=== PATIENT | female | born 1970 | race Caucasian/White ===

== ENCOUNTER 2016-07-06 07:54 | Outpatient (CLI) | payer OTHER | END 2016-07-06 07:55 | disposition home or self-care (01) | DX: M23.222 Derangement of posterior horn of medial meniscus due to old tear or injury, left knee (principal); M17.12 Unilateral primary osteoarthritis, left knee; M67.864 Other specified disorders of tendon, left knee; M23.92 Unspecified internal derangement of left knee ==

== ENCOUNTER 2016-07-21 06:16 | Day surgery (SDC) | payer OTHER ==
[2016-07-21] MEDS ORDERED: ACETAMINOPHEN 1,000 MG/100 ML 100 ML IV ONE (06:31)
[2016-07-21] MEDS ORDERED: LACTATED RINGERS 1,000 ML IV ONE ×2 (06:36→08:59)
[2016-07-21] MEDS ORDERED: CLINDAMYCIN IV 900 MG/50 ML IV SCH (07:00)
[2016-07-21] MEDS ORDERED: SCOPOLAMINE PATCH TOP ONE (07:33)
[2016-07-21] MEDS ORDERED: fentaNYL 100 MCG/2 ML VIAL IVP ONE (08:00)
[2016-07-21] MEDS ORDERED: PROPOFOL 200 MG/20 ML VIAL IVP ONE (08:00)
[2016-07-21] MEDS ORDERED: LIDOCAINE-PF 2% 10 ML AMP SUBQ ONE (08:00)
[2016-07-21] MEDS ORDERED: MIDAZOLAM 2 MG/2 ML VIAL IVP ONE (08:00)
[2016-07-21] MEDS ORDERED: LACTATED RINGERS 1,000 ML IV SCH (08:00)
[2016-07-21] MEDS ORDERED: DEXAMETHASONE 4 MG/ML VIAL IVP ONE (08:00)
[2016-07-21] MEDS ORDERED: PHENYLEPHRINE 50 MG/5 ML VIAL IV ONE (08:00)
[2016-07-21] MEDS ORDERED: METOCLOPRAMIDE 10 MG/2 ML VIAL IVP ONE (08:00)
[2016-07-21] MEDS ORDERED: ROPIVACAINE 0.2% PF 20 ML AMPULE SUBQ ONE ×2 (08:14→09:00)
[2016-07-21] MEDS ORDERED: MORPHINE PF 5 MG/10 ML AMP SUBQ ONE ×2 (08:14→09:00)
[2016-07-21] MEDS ORDERED: BUPIVACAINE 0.5% PF 10 ML VIAL IM ONE (08:16)
[2016-07-21] MEDS: HYDROmorphone 1 MG/ML SYRINGE ONE ×4 (09:41→09:57)
== END 2016-07-21 06:17 | disposition home or self-care (01) ==
PROC: 0SCD4ZZ Extirpation of Matter from Left Knee Joint, Percutaneous Endoscopic Approach (ICD-10-PCS; 2016-07-21)
PROC: 0SQD4ZZ Repair Left Knee Joint, Percutaneous Endoscopic Approach (ICD-10-PCS; 2016-07-21)
PROC: 0SBD4ZZ Excision of Left Knee Joint, Percutaneous Endoscopic Approach (ICD-10-PCS; principal; 2016-07-21 07:30)
DX: S83.242A Other tear of medial meniscus, current injury, left knee, initial encounter (principal); M94.262 Chondromalacia, left knee; M23.42 Loose body in knee, left knee; M17.12 Unilateral primary osteoarthritis, left knee; E66.9 Obesity, unspecified; Z68.39 Body mass index [BMI] 39.0-39.9, adult
CPT/HCPCS: 29879; 29881; J0131; J1170; J3490; J7120

== ENCOUNTER 2021-04-25 15:30 | Emergency (ER) | payer OTHER ==
--- NOTE | 2021-04-25 16:35 | ED Physician Documentation ---
PD HPI URI - Stated complaint Stated Complaint: C+ - Chief complaint Chief Complaint: Fever - History obtained from History obtained from: Patient - History of Present Illness Timing - onset: How many days ago (6) Timing duration: Days (6) Timing details: Abrupt onset, Still present Associated symptoms: Fever, Nasal congestion, Sore throat, Productive cough, Dyspnea. No: NVD, Bilateral edema Contributing factors: Sick contact ( with positive COVID TEst and feeling ill. Patient then ill and had home rapid Ag test that was positive on . Was hoping to do okay, but has increasing cough and fevers. Hoping for improved meds and also to consider MAB therapy.), Unimmunized Improves by: No: Rest, Medication (OTC guafenesin and cold meds. Tylenol does help fever. Has increased cough with sputum production.) Worsened by: Activity Similar symptoms before: Has not had sx before Recently seen: Not recently seen Review of Systems Constitutional: reports: Fever, Chills Nose: reports: Rhinorrhea / runny nose, Congestion Throat: reports: Sore throat Cardiac: reports: Chest pain / pressure (with coughing, moderate or worse pains in anterior chest and muscles.). denies: Palpitations, Pedal edema Respiratory: reports: Dyspnea, Cough (with now 1-2 days increasing sputum production.) GI: reports: Nausea. denies: Abdominal Pain, Vomiting, Diarrhea : denies: Dysuria, Frequency Skin: denies: Rash, Lesions Neurologic: reports: Generalized weakness, Headache. 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, Miscarriage(s) : None HEENT: None Psych: None Musculoskeletal: Other Derm: None - Past Surgical History Past Surgical History: Yes General: Cholecystectomy Ortho: Arthroscopic surgery, Carpal Tunnel surgery, Other /HOSPICE DIRECTOR: section, Hysterectomy HEENT: Tonsil/Adenoidectomy - Present Medications Home Medications: Ambulatory Orders Medication Instructions Recorded Confirmed Trazodone HCl 50 mg PO HS PRN 12/31/12 04/25/21 Omeprazole [PriLOSEC] 20 mg PO DAILY 01/12/14 04/25/21 Cetirizine [ZyrTEC] 10 mg PO DAILY 07/18/16 04/25/21 Albuterol Sulf [Ventolin Hfa 2 - 3 puffs INH QID 10 Days #1 04/25/21 Inhaler] inhaler Benzonatate [Tessalon] 100 mg PO TID PRN #20 cap 04/25/21 HYDROcod/ACETAM 5/325 [[place] 5/325] 1 ea PO Q6H PRN #18 tablet 04/25/21 Promethazine [Phenergan] 25 mg PO Q6H PRN #20 tab 04/25/21 cephALEXin [Keflex] 500 mg PO TID 5 Days #15 cap 04/25/21 dexAMETHasone [Decadron] 4 mg PO DAILY #5 tablet 04/25/21 - Allergies Allergies/Adverse Reactions: Allergies Allergy/AdvReac Type Severity Reaction Status Date / Time ondansetron HCl * Allergy Hives Verified 04/25/21 16:08 [From Zofran] Penicillins Allergy Hives Verified 04/25/21 16:08 wheat AdvReac Cramps Verified 04/25/21 16:08 - Social History Does the pt smoke?: No Smoking Status: Never smoker Does the pt drink ETOH?: No Does the pt have substance abuse?: No - Immunizations Immunizations are current?: Yes - POLST Patient has POLST: No PD ED PE NORMAL - Vitals Vital signs reviewed: Yes (sats okay) - General General: Alert and oriented X 3, No acute distress, Well developed/nourished - HEENT HEENT: Moist mucous membranes, Pharynx benign - Neck Neck: Supple, no meningeal sign, No adenopathy - Cardiac Cardiac: RRR, No murmur - Respiratory Respiratory: No respiratory distress (but does appear in pain with coughing, and having cough with attempted deep or moderate breaths triggering coughing. ). No: Clear bilaterally (some exp wheezing. Mild coarse sounds particularly right side. ) - Abdomen Abdomen: Soft, Non tender - Back Back: No CVA TTP - Derm Derm: Normal color, Warm and dry - Neuro Neuro: Alert and oriented X 3, No motor deficit, Normal speech Results - Vitals Vitals: Oxygen O2 Source Room air - Rads (name of study) chest xray Radiology: Prelim report reviewed (BIlateral patchy ariway opacities. ), EMP read contemporaneously (presume COVID as xray very c/w that, but symptoms suggest possible secondary infection as well.), See rad report PD MEDICAL DECISION MAKING - ED course Complexity details: reviewed results, re-evaluated patient (she did brreath easier with MDIs and meds. She is considering MAB if test psotive. ), considered differential (presumed COVID< But with some symptoms suggestive secondary ifnection versus ramping primary infection. ), d/w patient Departure - Departure Disposition: 01 Home, Self Care Clinical Impression: COVID-19, Acute lower respiratory infection Condition: Stable Record reviewed to determine appropriate education?: Yes Instructions: ED Pneumonia Adult Prescriptions: dexAMETHasone [Decadron] 4 mg PO DAILY #5 tablet cephALEXin [Keflex] 500 mg PO TID 5 Days #15 cap HYDROcod/ACETAM 5/325 [[place] 5/325] 1 ea PO Q6H PRN #18 tablet PRN Reason: Cough Promethazine [Phenergan] 25 mg PO Q6H PRN #20 tab PRN Reason: Nausea / Vomiting Benzonatate [Tessalon] 100 mg PO TID PRN #20 cap PRN Reason: Cough Albuterol Sulf [Ventolin Hfa Inhaler] 2 - 3 puffs INH QID 10 Days #1 inhaler Comments: Stay well-hydrated. Tylenol if needed for fevers and pains. Use the albuterol inhaler 2 to 3 puffs 4 times a day at least regularly for the next several days to a week to help with breathing and decrease coughing. Decadron steroid daily for the next 5 days to help with airway inflammation and improve breathing and decrease coughing. Add benzonatate if needed for cough. Promethazine if needed for nausea. Keflex three times daily for 5 days for possible bacterial co-infection, given your worsening symptoms. You can add hydrocodone every 4-6 hours if needed for general pains and pain in the chest related to coughing and can also help with cough suppression. Your chest x-ray looks consistent with a viral type pneumonia. Your Covid test will result the next day or 2. If it verifies the Covid infection, you could return to the ER during that daytime hours between 7 AM and 5 PM for monoclonal antibody infusion to help try to reduce the severity of the illness. Refer to the handout that I gave you for information on this. Call ahead to the ER if you desire to get this to ensure we have a supply in stock and can accommodate the process. It would be a approximately 3-hour process with the IV and infusion. Return if worsening symptoms overall. I transmitted your prescriptions to [facility] pharmacy in [place]. As we discussed I do not believe they are filling prescriptions today because their pharmacist did not make it in but presumably they will be open tomorrow. I am prescribing a short course of narcotic pain medication for you. These are potentially dangerous and addictive medications that should be used carefully. These medications may constipate you. Take an gwst-sza-wklktzu stool softener such as docusate twice daily with plenty of water while taking these medicati ons. If you go 24 hours without a bowel movement, take wedn-afy-mdrhmnh MiraLAX, per package instructions. Do not drink or drive while taking these medications. If you received narcotic or sedating medications while in the emergency department do not drive for 24 hours. Store this medication in a safe, secure place and out of reach of children. It is a violation of federal law to give or sell this medication to another person or to use in a manner other than prescribed. The ED will not refill narcotic prescriptions, including prescriptions lost or stolen. You can dispose of unwanted medications at the [facility]'s office or at several pharmacies such as [facility]. Discharge Date/Time: 04/25/21 18:34
[2021-04-25] MEDS ORDERED: diphenhydrAMINE ELIXIR 25 MG/10 ML UDC PO STA (17:16)
[2021-04-25] MEDS ORDERED: DEXAMETHASONE 10 MG/ML VIAL PO STA (17:16)
[2021-04-25] MEDS ORDERED: ALBUTEROL 1 PUFF INH STA (17:16)
[2021-04-25] MEDS ORDERED: BENZONATATE 100 MG CAPSULE PO STA (17:16)
[2021-04-25] MEDS ORDERED: CHERRY SYRUP 10 ML UDC PO ONE (17:16)
[2021-04-25] MEDS ORDERED: PROMETHAZINE 25 MG TABLET PO STA (17:17)
[2021-04-25] MEDS ORDERED: HYDROcod/ACETAM 5/325 MG TABLET PO STA (17:18)
--- NOTE | 2021-04-25 17:36 | XRAY Report ---
PROCEDURE: Chest 1 View X-Ray INDICATIONS: cough and fever TECHNIQUE: One view of the chest was acquired. COMPARISON: None. FINDINGS: Surgical changes and devices: None. Lungs and pleura: No pleural effusions or pneumothorax. Bilateral patchy airspace opacity. Mediastinum: Mediastinal contours appear normal. Heart size is normal. Bones and chest wall: No suspicious bony lesions. Overlying soft tissues appear unremarkable. IMPRESSION: Bilateral patchy airspace opacity. Findings concerning for multifocal pneumonia. Covid 19 pneumonia could have this appearance. Reviewed by: Juan J Adler MD on 04/25/2021 5:34 PM PST Approved by: Juan J Adler MD on 04/25/2021 5:34 PM PST Station ID: [id number]
[2021-04-25 18:22] VITALS: BP 116/62
== END 2021-04-25 18:34 | disposition home or self-care (01) ==
LOC: ED 15:30
DX: U07.1 COVID-19 (principal); J22 Unspecified acute lower respiratory infection; R11.0 Nausea
CPT/HCPCS: 71045; 87635; 94640; 94664; 99284; A9270; Q0169

== ENCOUNTER 2021-04-30 18:40 | Inpatient (IN) | payer OTHER ==
[2021-04-30] MEDS ORDERED: DEXAMETHASONE 10 MG/ML VIAL IVP STA (20:03)
[2021-04-30] MEDS ORDERED: ENOXAPARIN 100 MG/ML SYRINGE SUBQ STA (20:03)
[2021-04-30] MEDS ORDERED: KETOROLAC 15 MG/ML VIAL IVP STA (20:04)
--- NOTE | 2021-04-30 20:06 | ED Physician Documentation ---
PD HPI DYSPNEA - Stated complaint Stated Complaint: C+ - Chief complaint Chief Complaint: Resp - History obtained from History obtained from: Patient - Additional information Additional information: 51-year-old woman with no significant comorbidities became ill on April 18. Her had just tested positive for Covid. She was not vaccinated against Covid. She was seen here on April 25. Chest x-ray showing opacities consistent with Covid pneumonia and subsequently tested positive. She returns today more short of breath, body aches, headaches, diarrhea. She is noted to be hypoxic on room air in triage with a room air sat of 78% and on my evaluation is requiring approximately 4 L of oxygen to keep her sats in the mid to low 90s. 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, Miscarriage(s) : None HEENT: None Psych: None Musculoskeletal: Other Derm: None - Past Surgical History Past Surgical History: Yes General: Cholecystectomy Ortho: Arthroscopic surgery, Carpal Tunnel surgery, Other /LINUX CONSULTANT: section, Hysterectomy HEENT: Tonsil/Adenoidectomy - Present Medications Home Medications: Ambulatory Orders Medication Instructions Recorded Confirmed Trazodone HCl 50 mg PO HS PRN 12/31/12 04/25/21 Omeprazole [PriLOSEC] 20 mg PO DAILY 01/12/14 04/25/21 Cetirizine [ZyrTEC] 10 mg PO DAILY 07/18/16 04/25/21 Albuterol Sulf [Ventolin Hfa 2 - 3 puffs INH QID 10 Days #1 04/25/21 Inhaler] inhaler Benzonatate [Tessalon] 100 mg PO TID PRN #20 cap 04/25/21 HYDROcod/ACETAM 5/325 [[place] 5/325] 1 ea PO Q6H PRN #18 tablet 04/25/21 Promethazine [Phenergan] 25 mg PO Q6H PRN #20 tab 04/25/21 cephALEXin [Keflex] 500 mg PO TID 5 Days #15 cap 04/25/21 dexAMETHasone [Decadron] 4 mg PO DAILY #5 tablet 04/25/21 - Allergies Allergies/Adverse Reactions: Allergies Allergy/AdvReac Type Severity Reaction Status Date / Time ondansetron HCl * Allergy Hives Verified 04/25/21 16:08 [From Zofran] Penicillins Allergy Hives Verified 04/25/21 16:08 wheat AdvReac Cramps Verified 04/25/21 16:08 - Social History Does the pt smoke?: No Smoking Status: Never smoker Does the pt drink ETOH?: No Does the pt have substance abuse?: No - Immunizations Immunizations are current?: Yes - POLST Patient has POLST: No PD ED PE NORMAL - Vitals Vital signs reviewed: Yes - General General: Alert and oriented X 3, No acute distress - HEENT HEENT: PERRL, EOMI - Neck Neck: Supple, no meningeal sign, No bony TTP - Cardiac Cardiac: RRR, No murmur - Respiratory Respiratory: Other (Rhonchorous throughout, mild labored breathing) - Abdomen Abdomen: Non tender - Back Back: No CVA TTP, No spinal TTP - Derm Derm: Normal color, Warm and dry - Extremities Extremities: No edema, No calf tenderness / cord - Neuro Neuro: Alert and oriented X 3, Normal speech Results - Vitals Vitals: Vital Signs - 24 hr 04/30/21 04/30/21 04/30/21 19:08 19:10 20:00 Temperature 37.3 C 37.3 C Heart Rate 60 60 63 Respiratory 24 24 24 Rate Blood Pressure 143/70 H 143/70 H 106/76 O2 Saturation 78 L 92 90 L Oxygen O2 Source Nasal cannula Oxygen Flow Rate 3 - EKG (time done) 1953 Rate: Rate (enter#) (57) Rhythm: NSR [place]: Normal QRS: Low voltage Ischemia: Non specific changes Procedures - General procedure General procedure: She was difficult for IV access and multiple nurses tried and failed. I p ersonally placed a long 22-gauge IV in the right antecubital fossa after ChloraPrep using real-time ultrasound guidance the flushed and deann well. PD MEDICAL DECISION MAKING - ED course ED course: 51-year-old woman with Covid pneumonia presents now significantly hypoxemic. Spoke with Dr. Matt for admission at 8:06 PM. She is requiring 4 L of nasal cannula. D-dimer and other labs are pending. Will order Lovenox and Decadron here. If D-dimer positive CT angiography as well. Departure - Departure Disposition: 66 [facility] DC/Xfer Clinical Impression: COVID-19, Hypoxemia Condition: Serious
[2021-04-30] MEDS ORDERED: PROCHLORPERAZINE 10 MG/2 ML VIAL IVP PRN (20:09)
--- NOTE | 2021-04-30 20:13 | XRAY Report ---
PROCEDURE: Chest 1 View X-Ray INDICATIONS: dyspnea, covid TECHNIQUE: One view of the chest was acquired. COMPARISON: Chest x-ray 04/25/2021 FINDINGS: Surgical changes and devices: None. Lungs and pleura: Multifocal areas of patchy opacity are present markedly progressive compared to boone or exam. Mediastinum: Mediastinal contours appear normal. Heart size is normal. Bones and chest wall: No suspicious bony lesions. Overlying soft tissues appear unremarkable. IMPRESSION: Progressive bilateral pulmonary opacities most consistent with pneumonia. Reviewed by: Cassie Hawkins MD on 04/30/2021 8:12 PM PST Approved by: Cassie Hawkins MD on 04/30/2021 8:12 PM PST Station ID: [id number]
--- NOTE | 2021-04-30 20:13 | HISTORY & PHYSICAL EXAMINATION ---
Chief Complaint - Chief Complaint Chief Complaint: Shortness of breath. History of Present Illness - Admitted From Admitted From:: Home - History Obtained From Records Reviewed: Yes History obtained from: Patient, ER Physician, EMR - History of Present Illness HPI Comment/Other: This is a 51-year-old female with past medical history significant for GERD who presents today complaining of worsening shortness of breath. She states she took an at-home test for Covid on the which came back positive. She felt terrible over the next week and so she came to the emergency department on the . X-ray at that time showed bilateral pneumonia but she was not hypoxic and so she was sent home. She states over the past 3 to 4 days she has had pro gressive shortness of breath and so she came back today for evaluation. She states her dyspnea is only with activity and she feels fine at rest. She has had a cough with productive green/brown sputum. She also had chest pain that is located behind the sternum and is worse with inspiration. The pain is nonradiating. She reports no fevers at home but has felt chills, malaise and has had diarrhea. She has also had decreased appetite. She is not vaccinated against Covid. She reports no lower extremity edema. 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 Her twin brother also has a history of diabetes. Living arrangement: At home Living Situation: With spouse/s.o. Social History Notes: She is a non-smoker and does not drink alcohol. - POLST Patient has POLST: No Meds/Allgy - Home Medications Home Medications: Ambulatory Orders Medication Instructions Recorded Confirmed Trazodone HCl 50 mg PO HS PRN 12/31/12 04/25/21 Omeprazole [PriLOSEC] 20 mg PO DAILY 01/12/14 04/25/21 Cetirizine [ZyrTEC] 10 mg PO DAILY 07/18/16 04/25/21 Albuterol Sulf [Ventolin Hfa 2 - 3 puffs INH QID 10 Days #1 04/25/21 Inhaler] inhaler Benzonatate [Tessalon] 100 mg PO TID PRN #20 cap 04/25/21 HYDROcod/ACETAM 5/325 [[place] 5/325] 1 ea PO Q6H PRN #18 tablet 04/25/21 Promethazine [Phenergan] 25 mg PO Q6H PRN #20 tab 04/25/21 cephALEXin [Keflex] 500 mg PO TID 5 Days #15 cap 04/25/21 dexAMETHasone [Decadron] 4 mg PO DAILY #5 tablet 04/25/21 - Allergies Allergies/Adverse Reactions: Allergies Allergy/AdvReac Type Severity Reaction Status Date / Time ondansetron HCl * Allergy Hives Verified 04/25/21 16:08 [From Zofran] Penicillins Allergy Hives Verified 04/25/21 16:08 wheat AdvReac Cramps Verified 04/25/21 16:08 Review of Systems - Constitutional Constitutional: reports: Fatigue, Chills, Malaise. denies: Fever - Ears, Nose & Throat Ears, Nose & Throat: denies: Nasal discharge - Cardiovascular Cariovascular: reports: Chest pain, Lightheadedness, Exertional dyspnea, Decr. exercise tolerance. denies: Edema - Respiratory Respiratory: reports: Cough, Sputum production, SOB with exertion. denies: SOB at rest - Gastrointestinal Gastrointestinal: reports: Diarrhea, Change in bowel habits. denies: Abdominal pain, Constipation, Nausea, Vomiting - Genitourinary Genitourinary: denies: Dysuria, Frequency, Urgency, Hematuria - Integumentary Integumentary: denies: Rash - Neurological Neurological: reports: Dizziness. denies: General weakness, Focal weakness - Hematologic/Lymphatic Hematologic/Lymphatic: denies: Anemia, Bruising - All Other Systems All Other Systems: reports: Reviewed and negative Prior Level of Functionality: She is independent with her ADL's. Exam - Vital Signs Reviewed Vital Signs: Yes Vital Signs: Vital Signs x48h Temp Pulse Resp BP Pulse Ox 04/30/21 19:10 37.3 C 60 24 143/70 H 92 04/30/21 19:08 37.3 C 60 24 143/70 H 78 L - Physical Exam General Appearance: positive: No acute distress, Alert Eyes Bilateral: positive: Normal inspection, Conjunctivae nml ENT: positive: ENT inspection nml Neck: positive: Nml inspection Respiratory: positive: No respiratory distress, Rhonchi. negative: Wheezes, Rales Cardiovascular: positive: Regular rate & rhythm. negative: Tachycardia, Systolic murmur Abdomen: positive: Non-tender, No distention. negative: Tenderness Skin: positive: Warm, Dry Extremities: positive: No pedal edema Neurologic/Psychiatric: positive: Motor nml. negative: Disoriented to person, Disoriented to place Conclusion/Plan - Problem List (1) Acute respiratory failure with hypoxia Conclusion/Plan: She is hypoxic requiring 4 L of oxygen. Imaging reveals bilateral infiltrates and she is Covid positive. She received Decadron in the emergency department. We will place her on 6 mg IV Decadron daily. We will start her on remdesivir. D-dimer has been ordered and is pending. If it is significantly elevated we will obtain a CT angiogram. She has received Lovenox therapeutic dose empirically. Continue supplemental oxygen for goal saturation greater than 92%. (2) COVID-19 Conclusion/Plan: This is the cause of respiratory failure. She is unvaccinated. Management as mentioned above. - Lab Results Lab results reviewed: Yes Fish Bones: 04/30/21 21:45 04/30/21 21:45 - Diagnostic Imaging Results Diagnostic Imaging Results: positive: Final report reviewed - EKG Results EKG Interpreted Independently: Yes EKG Findings: EKG reveals a sinus rhythm without evidence of ischemia. Core Measures - Anticipated LOS I expect patient to be DC'd or transferred within 96 hours.: Yes - Issues Hospital Issues and Management Plan: 51-year-old female with Covid presents with worsening dyspnea found to be hypoxic. She will be admitted for IV Decadron and remdesivir. - DVT/VTE - Prophylaxis VTE/DVT Device ordered at admit?: Yes - Stroke - Rehab Assessment Rehab services assessment to be ordered?: Yes
[2021-04-30] MEDS ORDERED: INSULIN ASPART 300 UNIT/3 ML PEN SUBQ SCH (21:00)
[2021-04-30 21:52] LABS: BASOPHILS % (AUTO) 0.2 %; HCT - HEMATOCRIT 42.7 % (37.0-47.0); HGB - HEMOGLOBIN 14.3 g/dL (12.0-16.0); LYMPHOCYTES # (AUTO) 0.7 10^3/uL (1.5-3.5); LYMPHOCYTES % (AUTO) 7.6 %; MEAN CORPUSCULAR HEMOGLOBIN 28.3 pg (27.0-31.0); MEAN CORPUSCULAR HGB CONC 33.5 g/dL (32.0-36.0); MEAN CORPUSCULAR VOLUME 84.6 fL (81.0-99.0); MEAN PLATELET VOLUME 9.3 fL (7.9-10.8); MONOCYTES # (AUTO) 0.4 10^3/uL (0.0-1.0); MONOCYTES % (AUTO) 4.3 %; NEUTROPHILS # (AUTO) 8.3 10^3/uL (1.5-6.6); NEUTROPHILS % (AUTO) 86.5 %; PLT - PLATELET COUNT 326 10^3/uL (130-450); RED BLOOD COUNT 5.05 10^6/uL (4.20-5.40); RED CELL DISTRIBUTION WIDTH 12.9 % (12.0-15.0); WHITE BLOOD COUNT 9.6 x10^3/uL (4.8-10.8)
[2021-04-30 22:05] LABS: ALBUMIN 3.4 g/dL (3.2-5.5); ALBUMIN/GLOBULIN RATIO 0.9 (1.0-2.2); BILIRUBIN,TOTAL 0.7 mg/dL (0.2-1.0); CALCIUM 9.3 mg/dL (8.5-10.3); CREATININE 0.7 mg/dL (0.4-1.0); PHOSPHORUS 3.4 mg/dL (2.5-4.6); POTASSIUM 3.3 mmol/L (3.5-5.0)
[2021-04-30] MEDS: ACETAMINOPHEN 325 MG TABLET PO PRN (22:18)
[2021-04-30] MEDS ORDERED: POTASSIUM CHLORIDE 20 MEQ TABLET PO ONE (22:30)
[2021-04-30] MEDS ORDERED: iohexoL-300 100 ML VIAL ONE (23:30)
[2021-05-01] MEDS ORDERED: iohexoL-300 100 ML VIAL IVP ONE (00:47)
--- NOTE | 2021-05-01 01:06 | CT Report ---
PROCEDURE: ANGIO CHEST W/WO INDICATIONS: Dyspnea. Hypoxia. Covid. Elevated d-dimer. CONTRAST: IV CONTRAST: Isovue 300 ml: 100 PO CONTRAST: *NO PO CONTRAST TECHNIQUE: After the administration of intravenous contrast, 2 mm axial images were acquired from the pulmonary apices to the posterior costophrenic angles during the arterial phase. In addition, 1 mm lung kernel and 5 mm soft tissue kernel reconstructions were performed. 3-dimensional coronal oblique maximum int ensity projection (MIP) reformats, 8 mm axial MIP, and 5 mm coronal and sagittal MPR reformats were t hen performed through the thorax. For radiation dose reduction, the following was used: automated exp osure control, adjustment of mA and/or kV according to patient size. COMPARISON: None. FINDINGS: Thyroid: Homogeneous. Systemic arterial Vasculature: Suboptimal opacification of the thoracic aorta without gross evidence of dissection. Normal size and contour without evidence of dissection. Pulmonary arterial vasculature: The pulmonary arterial vasculature demonstrates good contrast opacifi cation. No filling defect is appreciated to suggest pulmonary embolism. Heart: No cardiomegaly or pericardial effusion. Mediastinum/cristopher: No pathologically enlarged lymph nodes are seen. Trace hiatal hernia. Lungs/pleura: At least moderate, predominantly peripheral groundglass airspace opacities are seen. No pleural effusion or pneumothorax. Tracheobronchial tree: Patent. Upper abdomen: The visualized upper abdomen is grossly unremarkable. Bones: No significant osseous abnormalities are noted. Chest wall: The chest wall and axilla are within normal limits. IMPRESSION: 1.No CT evidence of pulmonary embolism. 2.At least moderate, predominantly peripheral ground glass airspace opacities, most consistent with a n atypical (viral) infectious process. Reviewed by: Mendez Armenta MD on 05/01/2021 1:04 AM [facility] Approved by: Mendez Armenta MD on 05/01/2021 1:04 AM [facility] Station ID: [id number]
[2021-05-01] MEDS: SODIUM CHLORIDE FLUSH 0.9% 10 ML SYRINGE IVP SCH ×4 (02:45→23:00)
[2021-05-01 06:16] LABS: BASOPHILS % (AUTO) 0.2 %; HCT - HEMATOCRIT 41.8 % (37.0-47.0); HGB - HEMOGLOBIN 13.6 g/dL (12.0-16.0); LYMPHOCYTES # (AUTO) 0.5 10^3/uL (1.5-3.5); LYMPHOCYTES % (AUTO) 7.7 %; MEAN CORPUSCULAR HEMOGLOBIN 27.4 pg (27.0-31.0); MEAN CORPUSCULAR HGB CONC 32.5 g/dL (32.0-36.0); MEAN CORPUSCULAR VOLUME 84.3 fL (81.0-99.0); MEAN PLATELET VOLUME 9.8 fL (7.9-10.8); MONOCYTES # (AUTO) 0.2 10^3/uL (0.0-1.0); MONOCYTES % (AUTO) 2.5 %; NEUTROPHILS # (AUTO) 5.3 10^3/uL (1.5-6.6); NEUTROPHILS % (AUTO) 87.8 %; PLT - PLATELET COUNT 288 10^3/uL (130-450); RED BLOOD COUNT 4.96 10^6/uL (4.20-5.40); WHITE BLOOD COUNT 6.1 x10^3/uL (4.8-10.8)
[2021-05-01 06:28] LABS: CALCIUM 8.8 mg/dL (8.5-10.3); CREATININE 0.8 mg/dL (0.4-1.0); MAGNESIUM 2.1 mg/dL (1.7-2.8); POTASSIUM 4.4 mmol/L (3.5-5.0)
[2021-05-01 06:59] LABS: DIFFERENTIAL COMMENT MANUAL=AUTO DIFF; PLATELET ESTIMATE, MANUAL NORMAL (130-450,000) (NORMAL); PLATELET MORPHOLOGY NORMAL APPEARANCE (NORMAL); RBC MORPHOLOGY (MULTIPLE) NORMAL APPEARANCE (NORMAL)
[2021-05-01] MEDS: INSULIN ASPART 300 UNIT/3 ML PEN SUBQ SCH ×4 (08:50→22:05)
[2021-05-01] MEDS: DEXAMETHASONE 10 MG/ML VIAL IVP SCH (08:53)
[2021-05-01] MEDS: ACETAMINOPHEN 325 MG TABLET PO PRN ×2 (08:53→22:23)
[2021-05-01] MEDS: ENOXAPARIN 40 MG/0.4 ML SYRINGE SUBQ SCH (08:56)
[2021-05-01] MEDS ORDERED: REMDESIVIR 100MG VIAL 200 MG in SODIUM CHLORIDE 0.9% 250 ML IV ONE (09:00)
[2021-05-01] MEDS ORDERED: INSULIN GLARGINE 300 UNIT/3 ML PEN SUBQ SCH (09:00)
[2021-05-01 09:06] LABS: ESTIMATED AVERAGE GLUCOSE 174 mg/dL (70-100); HEMOGLOBIN A1c% 7.7 % (4.27-6.07)
--- NOTE | 2021-05-01 17:11 | PROVIDER PROGRESS NOTE ---
Subjective - Prog Note Date Prog Note Date: 05/01/21 - Subjective Pt reports feeling: No change Subjective: Pt reports she "feels like I got hit by a truck". Currently requiring 4L NC, satting 92%. Reports increased dyspnea when ambulating but otherwise denies concerns. No fevers, chills or pain. Objective - Vital Signs/Intake & Output Reviewed Vital Signs: Yes Vital Signs: Vital Signs x48h Temp Pulse Resp BP Pulse Ox 05/01/21 13:36 36.4 C L 59 L 20 113/57 L 92 Intake & Output: Intake & Output 04/28/21 04/29/21 04/30/21 05/01/21 23:59 23:59 23:59 23:59 Intake Total 690 Output Total 0 Balance 0 690 - Objective General Appearance: positive: No acute distress, Alert Eyes Bilateral: positive: Normal inspection, PERRL ENT: positive: ENT inspection nml, No signs of dehydration Respiratory: positive: Chest non-tender, No respiratory distress, Rhonchi Cardiovascular: positive: Regular rate & rhythm, No murmur Peripheral Pulses: 2+ Dorsalis pedis (R), 2+ Dorsalis pedis (L) Abdomen: positive: Non-tender, No organomegaly, Nml bowel sounds, No distention Skin: positive: Pallor Extremities: positive: Non-tender, Full ROM, Nml appearance Neurologic/Psychiatric: positive: Oriented x3 - Lab Results Fish Bones: 05/01/21 04:41 05/01/21 04:41 Other Labs: Lab Results x24hrs 05/01/21 05/01/21 05/01/21 Range/Units 16:44 12:22 07:47 WBC (4.8-10.8) x10^3/uL RBC (4.20-5.40) 10^6/uL Hgb (12.0-16.0) g/dL Hct (37.0-47.0) % MCV (81.0-99.0) fL MCH (27.0-31.0) pg MCHC (32.0-36.0) g/dL RDW (12.0-15.0) % Plt Count (130-450) 10^3/uL MPV (7.9-10.8) fL Neut # (Auto) (1.5-6.6) 10^3/uL Lymph # (Auto) (1.5-3.5) 10^3/uL [place] # (Auto) (0.0-1.0) 10^3/uL Eos # (Auto) (0.0-0.7) 10^3/uL Baso # (Auto) (0.0-0.1) 10^3/uL Absolute Nucleated RBC x10^3/uL Band Neuts % (Manual) Abnorm Lymph % (Manual) Nucleated RBC % /100WBC Neutrophils # (Manual) Lymphocytes # (Manual) Monocytes # (Manual) Eosinophils # (Manual) Basophils # (Manual) Differential Comment Platelet Estimate (NORMAL) Platelet Morphology (NORMAL) RBC Morph Micro Appear (NORMAL) D-Dimer (200.0-255.0) ng/mL Sodium (135-145) mmol/L Potassium (3.5-5.0) mmol/L Chloride (101-111) mmol/L Carbon Dioxide (21-32) mmol/L Anion Gap (6-13) BUN (6-20) mg/dL Creatinine (0.4-1.0) mg/dL Estimated GFR (MDRD) (>89) Glucose (70-100) mg/dL POC Whole Bld Glucose 330 H 303 H 404 H (70 - 100) mg/dL Estimat Average Glucose (70-100) mg/dL Hemoglobin A1c % (4.27-6.07) % Calcium (8.5-10.3) mg/dL Phosphorus (2.5-4.6) mg/dL Magnesium (1.7-2.8) mg/dL Total Bilirubin (0.2-1.0) mg/dL AST (10-42) IU/L ALT (10-60) IU/L Alkaline Phosphatase (42-121) IU/L Troponin I High Sens (2.3-14.8) ng/L Total Protein (6.7-8.2) g/dL Albumin (3.2-5.5) g/dL Globulin (2.1-4.2) g/dL Albumin/Globulin Ratio (1.0-2.2) 05/01/21 05/01/21 05/01/21 Range/Units 04:41 04:41 04:41 WBC 6.1 (4.8-10.8) x10^3/uL RBC 4.96 (4.20-5.40) 10^6/uL Hgb 13.6 (12.0-16.0) g/dL Hct 41.8 (37.0-47.0) % MCV 84.3 (81.0-99.0) fL MCH 27.4 (27.0-31.0) pg MCHC 32.5 (32.0-36.0) g/dL RDW 13.0 (12.0-15.0) % Plt Count 288 (130-450) 10^3/uL MPV 9.8 (7.9-10.8) fL Neut # (Auto) 5.3 (1.5-6.6) 10^3/uL Lymph # (Auto) 0.5 L (1.5-3.5) 10^3/uL [place] # (Auto) 0.2 (0.0-1.0) 10^3/uL Eos # (Auto) 0.0 (0.0-0.7) 10^3/uL Baso # (Auto) 0.0 (0.0-0.1) 10^3/uL Absolute Nucleated RBC 0.00 x10^3/uL Band Neuts % (Manual) Not Reportable Abnorm Lymph % (Manual) Not Reportable Nucleated RBC % 0.0 /100WBC Neutrophils # (Manual) Not Reportable Lymphocytes # (Manual) Not Reportable Monocytes # (Manual) Not Reportable Eosinophils # (Manual) Not Reportable Basophils # (Manual) Not Reportable Differential Comment MANUAL=AUTO DIFF Platelet Estimate NORMAL (130-450,000) (NORMAL) Platelet Morphology NORMAL APPEARANCE (NORMAL) RBC Morph Micro Appear NORMAL APPEARANCE (NORMAL) D-Dimer (200.0-255.0) ng/mL Sodium 138 (135-145) mmol/L Potassium 4.4 (3.5-5.0) mmol/L Chloride 103 (101-111) mmol/L Carbon Dioxide 23 (21-32) mmol/L Anion Gap 12.0 (6-13) BUN 22 H (6-20) mg/dL Creatinine 0.8 (0.4-1.0) mg/dL Estimated GFR (MDRD) 75 L (>89) Glucose 475 H (70-100) mg/dL POC Whole Bld Glucose (70 - 100) mg/dL Estimat Average Glucose 174 H (70-100) mg/dL Hemoglobin A1c % 7.7 H (4.27-6.07) % Calcium 8.8 (8.5-10.3) mg/dL Phosphorus (2.5-4.6) mg/dL Magnesium 2.1 (1.7-2.8) mg/dL Total Bilirubin (0.2-1.0) mg/dL AST (10-42) IU/L ALT (10-60) IU/L Alkaline Phosphatase (42-121) IU/L Troponin I High Sens (2.3-14.8) ng/L Total Protein (6.7-8.2) g/dL Albumin (3.2-5.5) g/dL Globulin (2.1-4.2) g/dL Albumin/Globulin Ratio (1.0-2.2) 04/30/21 04/30/21 04/30/21 Range/Units 23:35 22:18 22:15 WBC (4.8-10.8) x10^3/uL RBC (4.20-5.40) 10^6/uL Hgb (12.0-16.0) g/dL Hct (37.0-47.0) % MCV (81.0-99.0) fL MCH (27.0-31.0) pg MCHC (32.0-36.0) g/dL RDW (12.0-15.0) % Plt Count (130-450) 10^3/uL MPV (7.9-10.8) fL Neut # (Auto) (1.5-6.6) 10^3/uL Lymph # (Auto) (1.5-3.5) 10^3/uL [place] # (Auto) (0.0-1.0) 10^3/uL Eos # (Auto) (0.0-0.7) 10^3/uL Baso # (Auto) (0.0-0.1) 10^3/uL Absolute Nucleated RBC x10^3/uL Band Neuts % (Manual) Abnorm Lymph % (Manual) Nucleated RBC % /100WBC Neutrophils # (Manual) Lymphocytes # (Manual) Monocytes # (Manual) Eosinophils # (Manual) Basophils # (Manual) Differential Comment Platelet Estimate (NORMAL) Platelet Morphology (NORMAL) RBC Morph Micro Appear (NORMAL) D-Dimer > 1050.0 H (200.0-255.0) ng/mL Sodium (135-145) mmol/L Potassium (3.5-5.0) mmol/L Chloride (101-111) mmol/L Carbon Dioxide (21-32) mmol/L Anion Gap (6-13) BUN (6-20) mg/dL Creatinine (0.4-1.0) mg/dL Estimated GFR (MDRD) (>89) Glucose (70-100) mg/dL POC Whole Bld Glucose 184 H (70 - 100) mg/dL Estimat Average Glucose (70-100) mg/dL Hemoglobin A1c % (4.27-6.07) % Calcium (8.5-10.3) mg/dL Phosphorus (2.5-4.6) mg/dL Magnesium (1.7-2.8) mg/dL Total Bilirubin (0.2-1.0) mg/dL AST (10-42) IU/L ALT (10-60) IU/L Alkaline Phosphatase (42-121) IU/L Troponin I High Sens 5.9 (2.3-14.8) ng/L Total Protein (6.7-8.2) g/dL Albumin (3.2-5.5) g/dL Globulin (2.1-4.2) g/dL Albumin/Globulin Ratio (1.0-2.2) 04/30/21 04/30/21 Range/Units 21:45 21:45 WBC 9.6 (4.8-10.8) x10^3/uL RBC 5.05 (4.20-5.40) 10^6/uL Hgb 14.3 (12.0-16.0) g/dL Hct 42.7 (37.0-47.0) % MCV 84.6 (81.0-99.0) fL MCH 28.3 (27.0-31.0) pg MCHC 33.5 (32.0-36.0) g/dL RDW 12.9 (12.0-15.0) % Plt Count 326 (130-450) 10^3/uL MPV 9.3 (7.9-10.8) fL Neut # (Auto) 8.3 H (1.5-6.6) 10^3/uL Lymph # (Auto) 0.7 L (1.5-3.5) 10^3/uL [place] # (Auto) 0.4 (0.0-1.0) 10^3/uL Eos # (Auto) 0.0 (0.0-0.7) 10^3/uL Baso # (Auto) 0.0 (0.0-0.1) 10^3/uL Absolute Nucleated RBC 0.00 x10^3/uL Band Neuts % (Manual) Abnorm Lymph % (Manual) Nucleated RBC % 0.0 /100WBC Neutrophils # (Manual) Lymphocytes # (Manual) Monocytes # (Manual) Eosinophils # (Manual) Basophils # (Manual) Differential Comment Platelet Estimate (NORMAL) Platelet Morphology (NORMAL) RBC Morph Micro Appear (NORMAL) D-Dimer (200.0-255.0) ng/mL Sodium 141 (135-145) mmol/L Potassium 3.3 L (3.5-5.0) mmol/L Chloride 103 (101-111) mmol/L Carbon Dioxide 26 (21-32) mmol/L Anion Gap 12.0 (6-13) BUN 21 H (6-20) mg/dL Creatinine 0.7 (0.4-1.0) mg/dL Estimated GFR (MDRD) 88 L (>89) Glucose 156 H (70-100) mg/dL POC Whole Bld Glucose (70 - 100) mg/dL Estimat Average Glucose (70-100) mg/dL Hemoglobin A1c % (4.27-6.07) % Calcium 9.3 (8.5-10.3) mg/dL Phosphorus 3.4 (2.5-4.6) mg/dL Magnesium (1.7-2.8) mg/dL Total Bilirubin 0.7 (0.2-1.0) mg/dL AST 20 (10-42) IU/L ALT 17 (10-60) IU/L Alkaline Phosphatase 81 (42-121) IU/L Troponin I High Sens (2.3-14.8) ng/L Total Protein 7.0 (6.7-8.2) g/dL Albumin 3.4 (3.2-5.5) g/dL Globulin 3.6 (2.1-4.2) g/dL Albumin/Globulin Ratio 0.9 L (1.0-2.2) ABX Reporting Has patient been on IV antibiotics over the past 48 hours?: No Sepsis Event Note (H) - Evaluation Current Stage of Sepsis: Ruled out Assessment/Plan - Problem List (1) Acute respiratory failure with hypoxia Impression: Stable. She continues to be hypoxic, requiring 4L NC for an oxygen saturation at rest of 90-92%. She has increased dyspnea with ambulation to the bathroom. Imaging on admission revealed bilateral infiltrates and she is COVID positive. May encourage her to lay prone when in bed to aid with treatment of the hypoxia but at this time she is comfortable. -Supplemental oxygen as needed (2) COVID-19 Impression: This is the cause of the respiratory failure. She is unvaccinated. She took an at home test on the which came back positive and was admitted yesterday for hypoxia. She was started on Remdesvir and Decadron, which will be continued. Her D-dimer was significantly elevated on admission, CT angiogram obtained that showed no evidence of pulmonary embolism. -Continue Remdesvir (1st dose given today) -Continue Decadron (2nd dose given today) -Supplemental O2 as needed -Lovenox BID (3) Diabetes Impression: This is a new diagnosis this admission. A1c was 7.7. She has not been diagnosed in the past but reports she has been "borderline" for quite some time. her parents and twin have diabetes type 2. She was scheduled for a bariatric surgery next month, with her last outpatient appointment prior to surgery next week, and she was "holding off until after surgery" on diabetes work up in hopes the surgery would be helpful. Her blood sugar this morning was 404 so I increased her meal time insulin to the moderate-medium sliding scale and added 5 units of Glargine with breakfast. She remains in the 300s this afternoon and will likely require further adjustments given the steroids she is receiving for covid treatment. She reports her last vision test was within the past 6 months and was normal. She does not have numbness or tingling in her hands or feet. -Diabetic diet -Insulin adjustments as needed -Diabetic teaching Qualifiers: Diabetes mellitus type: type 2 Diabetes mellitus correction insulin use: without correction use Diabetes mellitus complication status: without complication Qualified Code(s): E11.9 - Type 2 diabetes mellitus without complications
[2021-05-01] MEDS: KETOROLAC 15 MG/ML VIAL IVP PRN (22:40)
[2021-05-01] MEDS: SODIUM CHLORIDE FLUSH 0.9% 10 ML SYRINGE IVP PRN (22:40)
[2021-05-01] MEDS: traZODone 50 MG TABLET PO PRN (22:41)
[2021-05-01] MEDS: PANTOPRAZOLE 40 MG TABLET PO SCH (22:49)
[2021-05-02] MEDS: SODIUM CHLORIDE FLUSH 0.9% 10 ML SYRINGE IVP SCH ×2 (06:15→17:29)
[2021-05-02] MEDS: KETOROLAC 15 MG/ML VIAL IVP PRN ×2 (06:15→17:29)
[2021-05-02 06:18] LABS: BASOPHILS % (AUTO) 0.1 %; EOSINOPHILS % (AUTO) 0.1 %; HCT - HEMATOCRIT 38.6 % (37.0-47.0); LYMPHOCYTES # (AUTO) 0.7 10^3/uL (1.5-3.5); LYMPHOCYTES % (AUTO) 9.3 %; MEAN CORPUSCULAR HGB CONC 33.7 g/dL (32.0-36.0); MEAN CORPUSCULAR VOLUME 83.2 fL (81.0-99.0); MEAN PLATELET VOLUME 9.5 fL (7.9-10.8); MONOCYTES # (AUTO) 0.3 10^3/uL (0.0-1.0); NEUTROPHILS # (AUTO) 6.3 10^3/uL (1.5-6.6); NEUTROPHILS % (AUTO) 85.3 %; PLT - PLATELET COUNT 306 10^3/uL (130-450); RED BLOOD COUNT 4.64 10^6/uL (4.20-5.40); WHITE BLOOD COUNT 7.3 x10^3/uL (4.8-10.8)
[2021-05-02 06:31] LABS: CALCIUM 8.8 mg/dL (8.5-10.3); CREATININE 0.7 mg/dL (0.4-1.0); MAGNESIUM 2.2 mg/dL (1.7-2.8); POTASSIUM 3.9 mmol/L (3.5-5.0)
[2021-05-02] MEDS ORDERED: INSULIN GLARGINE 300 UNIT/3 ML PEN SUBQ SCH (08:00)
[2021-05-02] MEDS: INSULIN ASPART 300 UNIT/3 ML PEN SUBQ SCH ×7 (08:48→22:34)
[2021-05-02] MEDS ORDERED: SODIUM CHLORIDE 0.9% 500 ML IV ONE (08:51)
--- NOTE | 2021-05-02 08:55 | PROVIDER PROGRESS NOTE ---
Assessment/Plan - Problem List (1) Acute respiratory failure with hypoxia Assessment/Plan: Stable. She continues to be hypoxic, requiring 4L NC for an oxygen saturation at rest of 90-92%. She has increased dyspnea with ambulation to the bathroom. Imaging on admission revealed bilateral infiltrates and she is COVID positive. May encourage her to lay prone when in bed to aid with treatment of the hypoxia but at this time she is comfortable. Cont supplemental oxygen to keep sats >90%, wean down when possible (2) COVID-19 Assessment/Plan: This is the cause of the respiratory failure. She is unvaccinated. She took an at home test on the which came back positive and was admitted yesterday for hypoxia. She was started on Remdesvir and Decadron, which will be continued. Her D-dimer was significantly elevated on admission, CT angiogram obtained that showed no evidence of pulmonary embolism. -Continue Remdesvir, Decadron, -Supplemental O2, Lovenox BID (3) Hypotension Assessment/Plan: Her blood pressure has been "soft" since admission but today she is hypotensive with systolics in the 80s. Her labs show that she has prerenal azotemia. We will give a saline bolus and may need to give IV maintenance fluids. (4) Prerenal azotemia Assessment/Plan: She has had prerenal azotemia since admission, with worsening BUN every day. We will give a saline bolu s today, and she may need maintenance IV fluids. Follow BMP daily (5) Diabetes mellitus Assessment/Plan: This is a new diagnosis this admission. A1c was 7.7. She has not been diagnosed in the past but reports she has been "borderline" for quite some time. her parents and twin have diabetes type 2. She was scheduled for a bariatric surgery next month and she was "holding off on managing Diabetes until after surgery" in hopes the surgery would be helpful. The glu are likely also elevated due to receiving steroids for her Covid treatment. She reports her last vision test was within the past 6 months and was normal. She does not have numbness or tingling in her hands or feet. Continue Diabetic diet, ss Insulin and she will see Diabetic teacher (Nutrition consult ordered). - Current Meds Current Meds: Current Medications Generic Name Dose Route Start Last Admin Trade Name Freq PRN Reason Stop Dose Admin Acetaminophen 650 mg 04/30/21 20:07 05/01/21 22:23 Acetaminophen 325 Mg Tablet PO 650 mg Q4HR PRN Administration Pain 1 to 4 Dexamethasone 6 mg 05/01/21 09:00 05/01/21 08:53 Dexamethasone 10 Mg/Ml Vial IVP 05/09/21 09:01 6 mg DAILY FIORDALIZA Administration Enoxaparin Sodium 40 mg 05/01/21 09:00 05/01/21 08:56 Enoxaparin 40 Mg/0.4 Ml Syringe SUBQ 40 mg DAILY FIORDLAIZA Administration Insulin Aspart 2 - 10 unit 05/01/21 08:30 05/02/21 08:49 Insulin Aspart 300 Unit/3 Ml Pen SUBQ 6 unit 0800,1200,1700,2100 FIORDALIZA Administration Protocol Insulin Aspart 4 unit 05/02/21 08:00 05/02/21 08:48 Insulin Aspart 300 Unit/3 Ml Pen SUBQ 4 unit TIDWM FIORDALIZA Administration Insulin Glargine 10 unit 05/02/21 08:00 05/02/21 08:50 Insulin Glargine 300 Unit/3 Ml Pen SUBQ 10 unit [id number] FIORDALIZA Administration Ketorolac Tromethamine 15 mg 05/01/21 22:19 05/02/21 06:15 Ketorolac 15 Mg/Ml Vial IVP 05/06/21 22:18 15 mg Q6HR PRN Administration PAIN Pantoprazole Sodium 40 mg 05/01/21 23:00 05/01/21 22:49 Pantoprazole 40 Mg Tablet PO 40 mg DAILY FIORDALIZA Administration Sodium Chloride 10 ml 04/30/21 20:07 05/01/21 22:40 Sodium Chloride Flush 0.9% 10 Ml Syringe IVP 10 ml PRN PRN Administration NEEDED PER PROVIDER ORDERS Sodium Chloride 10 ml 05/01/21 01:00 05/02/21 06:15 Sodium Chloride Flush 0.9% 10 Ml Syringe IVP 10 ml 0100,0900,1700 FIORDALIZA Administration Trazodone HCl 50 mg 05/01/21 22:18 05/01/21 22:41 Trazodone 50 Mg Tablet PO 50 mg HS PRN Administration NEEDED PER PROVIDER ORDERS - Lab Result Fish Bone Diagrams: 05/02/21 05:40 05/02/21 05:40 - Additional Planning My Orders: My Active Orders 05/02/21 08:51 0.9% NS 500ML BOLUS X1 Sodium Chloride 0.9% [Normal Saline 0.9%] 500 ml IV ONCE Objective Vital Signs: Vital Signs - 24 hr 05/01/21 05/01/21 05/01/21 13:36 17:00 20:48 Temperature 36.4 C L 36.7 C 36.7 C Heart Rate [ 59 L 46 L 53 L Brachial] Respiratory 20 18 18 Rate Blood Pressure 113/57 L 112/59 L 106/57 L [Left Brachial artery] Blood Pressure [Right Brachial artery] O2 Saturation 92 93 90 L 05/01/21 05/02/21 05/02/21 22:53 05:00 07:48 Temperature 36.3 C L 36.5 C 36.6 C Heart Rate [ 50 L 50 L 51 L Brachial] Respiratory 19 16 17 Rate Blood Pressure [Left Brachial artery] Blood Pressure 119/53 L 109/52 L 88/51 L [Right Brachial artery] O2 Saturation 93 93 Oxygen O2 Source Nasal cannula Oxygen Flow Rate 3 I&O (Last 24 Hrs): Intake and Output Totals x24h 04/30/21 05/01/21 05/02/21 23:59 23:59 23:59 Intake Total 1170 100 Output Total 0 Balance 0 1170 100 - Results Results: Laboratory Results WBC 7.3 x10^3/uL (4.8-10.8) 05/02/21 05:40 RBC 4.64 10^6/uL (4.20-5.40) 05/02/21 05:40 Hgb 13.0 g/dL (12.0-16.0) 05/02/21 05:40 Hct 38.6 % (37.0-47.0) 05/02/21 05:40 MCV 83.2 fL (81.0-99.0) 05/02/21 05:40 MCH 28.0 pg (27.0-31.0) 05/02/21 05:40 MCHC 33.7 g/dL (32.0-36.0) 05/02/21 05:40 RDW 13.0 % (12.0-15.0) 05/02/21 05:40 Plt Count 306 10^3/uL (130-450) 05/02/21 05:40 MPV 9.5 fL (7.9-10.8) 05/02/21 05:40 Neut # (Auto) 6.3 10^3/uL (1.5-6.6) 05/02/21 05:40 Lymph # (Auto) 0.7 10^3/uL (1.5-3.5) L 05/02/21 05:40 [place] # (Auto) 0.3 10^3/uL (0.0-1.0) 05/02/21 05:40 Eos # (Auto) 0.0 10^3/uL (0.0-0.7) 05/02/21 05:40 Baso # (Auto) 0.0 10^3/uL (0.0-0.1) 05/02/21 05:40 Absolute Nucleated RBC 0.00 x10^3/uL 05/02/21 05:40 Band Neuts % (Manual) Not Reportable 05/01/21 04:41 Abnorm Lymph % (Manual) Not Reportable 05/01/21 04:41 Nucleated RBC % 0.0 /100WBC 05/02/21 05:40 Neutrophils # (Manual) Not Reportable 05/01/21 04:41 Lymphocytes # (Manual) Not Reportable 05/01/21 04:41 Monocytes # (Manual) Not Reportable 05/01/21 04:41 Eosinophils # (Manual) Not Reportable 05/01/21 04:41 Basophils # (Manual) Not Reportable 05/01/21 04:41 Differential Comment MANUAL=AUTO DIFF 05/01/21 04:41 Platelet Estimate NORMAL (130-450,000) (NORMAL) 05/01/21 04:41 Platelet Morphology NORMAL APPEARANCE (NORMAL) 05/01/21 04:41 RBC Morph Micro Appear NORMAL APPEARANCE (NORMAL) 05/01/21 04:41 D-Dimer > 1050.0 ng/mL (200.0-255.0) H 04/30/21 22:18 Sodium 137 mmol/L (135-145) 05/02/21 05:40 Potassium 3.9 mmol/L (3.5-5.0) 05/02/21 05:40 Chloride 103 mmol/L (101-111) 05/02/21 05:40 Carbon Dioxide 22 mmol/L (21-32) 05/02/21 05:40 Anion Gap 12.0 (6-13) 05/02/21 05:40 BUN 26 mg/dL (6-20) H 05/02/21 05:40 Creatinine 0.7 mg/dL (0.4-1.0) 05/02/21 05:40 Estimated GFR (MDRD) 88 (>89) L 05/02/21 05:40 Glucose 293 mg/dL (70-100) H 05/02/21 05:40 POC Whole Bld Glucose 273 mg/dL (70 - 100) H 05/02/21 07:45 Estimat Average Glucose 174 mg/dL (70-100) H 05/01/21 04:41 Hemoglobin A1c % 7.7 % (4.27-6.07) H 05/01/21 04:41 Calcium 8.8 mg/dL (8.5-10.3) 05/02/21 05:40 Phosphorus 3.4 mg/dL (2.5-4.6) 04/30/21 21:45 Magnesium 2.2 mg/dL (1.7-2.8) 05/02/21 05:40 Total Bilirubin 0.7 mg/dL (0.2-1.0) 04/30/21 21:45 AST 20 IU/L (10-42) 04/30/21 21:45 ALT 17 IU/L (10-60) 04/30/21 21:45 Alkaline Phosphatase 81 IU/L (42-121) 04/30/21 21:45 Troponin I High Sens 5.9 ng/L (2.3-14.8) 04/30/21 23:35 Total Protein 7.0 g/dL (6.7-8.2) 04/30/21 21:45 Albumin 3.4 g/dL (3.2-5.5) 04/30/21 21:45 Globulin 3.6 g/dL (2.1-4.2) 04/30/21 21:45 Albumin/Globulin Ratio 0.9 (1.0-2.2) L 04/30/21 21:45 - Procedures Procedures: Procedures EXCISION OF LEFT KNEE JOINT, PERC ENDO APPROACH (07/21/16) EXCISION OF LEFT LOWER LEG TENDON, OPEN APPROACH (03/15/16) EXCISION OF RIGHT KNEE JOINT, PERC ENDO APPROACH (07/16/15) EXTIRPATION OF MATTER FROM L KNEE JT, PERC ENDO APPROACH (07/21/16) REPAIR LEFT KNEE JOINT, PERCUTANEOUS ENDOSCOPIC APPROACH (07/21/16) SUPPLEMENT LEFT ANKLE TENDON WITH SYNTH SUB, OPEN APPROACH (03/15/16) Sepsis Event Note (H) - Evaluation Current Stage of Sepsis: Ruled out
[2021-05-02] MEDS ORDERED: PANTOPRAZOLE 40 MG TABLET PO SCH (09:00)
--- NOTE | 2021-05-02 15:45 | PHARMACY PROGRESS NOTE ---
- Best Possible Medication History Admit Date and Time: 04/30/212006 Processed by: Pharmacy Medication History completed: Yes Secondary Source(s): Insurance records, Previous admit records As the person ultimately responsible for medication therapy, providers are able to order a medication from an existing home medication list in [facility] via the "Reconcile Routine" prior to Confirmation of that medication by support teacher. Such practice is discouraged except when the physician, in their clinical judgment, deems that a medical need exists for a medication without regard to previous use.
[2021-05-02] MEDS: ENOXAPARIN 40 MG/0.4 ML SYRINGE SUBQ SCH (16:00)
[2021-05-02] MEDS: DEXAMETHASONE 10 MG/ML VIAL IVP SCH (16:00)
[2021-05-02] MEDS: REMDESIVIR 100MG VIAL 100 MG in SODIUM CHLORIDE 0.9% 100ML 100 ML IV SCH (16:01)
[2021-05-02] MEDS: PANTOPRAZOLE 40 MG TABLET PO SCH (16:01)
--- NOTE | 2021-05-02 16:22 | PROVIDER PROGRESS NOTE ---
Assessment/Plan - Problem List (1) Acute respiratory failure with hypoxia Assessment/Plan: Stable 2/2 COVID-19 Currently on 4L Oxygen via nasal canula with O2Sat at 95% Decadron Day 06/08, Remdesivir Day 2/ Lovenox for DVT prophylaxis (2) COVID-19 Assessment/Plan: Currently on 4L Oxygen via nasal canula with O2Sat at 95% Decadron Day 2, Remdesivir Day 2/5 Lovenox for DVT prophylaxis (3) Diabetes mellitus Qualifiers: Diabetes mellitus type: type 2 Assessment/Plan: HgA1C 7.7 On lantus 5 units qam and 10 units qpm Accu checks qAC and HS, SSI - Current Meds Current Meds: Current Medications Generic Name Dose Route Start Last Admin Trade Name Freq PRN Reason Stop Dose Admin Acetaminophen 650 mg 04/30/21 20:07 05/01/21 22:23 Acetaminophen 325 Mg Tablet PO 650 mg Q4HR PRN Administration Pain 1 to 4 Dexamethasone 6 mg 05/01/21 09:00 05/02/21 16:00 Dexamethasone 10 Mg/Ml Vial IVP 05/09/21 09:01 Not Given DAILY [facility] Enoxaparin Sodium 40 mg 05/01/21 09:00 05/02/21 16:00 Enoxaparin 40 Mg/0.4 Ml Syringe SUBQ Not Given DAILY [facility] Remdesivir 100 mg/ Sodium 100 mls @ 200 mls/hr 05/02/21 09:00 05/02/21 16:01 Chloride IV 05/05/21 09:29 Not Given DAILY [facility] Insulin Aspart 2 - 10 unit 05/01/21 08:30 05/02/21 16:06 Insulin Aspart 300 Unit/3 Ml Pen SUBQ Not Given 0800,1200,1700,2100 [facility] Protocol Insulin Aspart 4 unit 05/02/21 08:00 05/02/21 16:06 Insulin Aspart 300 Unit/3 Ml Pen SUBQ Not Given TIDWM [facility] Insulin Glargine 10 unit 05/02/21 08:00 05/02/21 08:50 Insulin Glargine 300 Unit/3 Ml Pen SUBQ 10 unit QDBREAKFAST [facility] Administration Ketorolac Tromethamine 15 mg 05/01/21 22:19 05/02/21 06:15 Ketorolac 15 Mg/Ml Vial IVP 05/06/21 22:18 15 mg Q6HR PRN Administration PAIN Pantoprazole Sodium 40 mg 05/01/21 23:00 05/02/21 16:01 Pantoprazole 40 Mg Tablet PO Not Given DAILY [facility]AL[facility] Sodium Chloride 10 ml 04/30/21 20:07 05/01/21 22:40 Sodium Chloride Flush 0.9% 10 Ml Syringe IVP 10 ml PRN PRN Administration NEEDED PER PROVIDER ORDERS Sodium Chloride 10 ml 05/01/21 01:00 05/02/21 06:15 Sodium Chloride Flush 0.9% 10 Ml Syringe IVP 10 ml 0100,0900,1700 [facility]ORDAL[facility]A Administration Trazodone HCl 50 mg 05/01/21 22:18 05/01/21 22:41 Trazodone 50 Mg Tablet PO 50 mg HS PRN Administration NEEDED PER PROVIDER ORDERS - Lab Result Fish Bone Diagrams: 05/02/21 05:40 05/02/21 05:40 Subjective - Subjective Patient Reports: Other (She was resting comfortably in bed at time of exam. Reports feeling congested. Denies chest pain, abd pain, n/v. Is significantly exhausted with the slightest activity. On 4L via N/C with O2Sat 95%) Objective Vital Signs: Vital Signs - 24 hr 05/01/21 05/01/21 05/01/21 17:00 20:48 22:53 Temperature 36.7 C 36.7 C 36.3 C L Heart Rate [ 46 L 53 L 50 L Brachial] Respiratory 18 18 19 Rate Blood Pressure 112/59 L 106/57 L [Left Brachial artery] Blood Pressure 119/53 L [Right Brachial artery] O2 Saturation 93 90 L 93 05/02/21 05/02/21 05:00 07:48 Temperature 36.5 C 36.6 C Heart Rate [ 50 L 51 L Brachial] Respiratory 16 17 Rate Blood Pressure [Left Brachial artery] Blood Pressure 109/52 L 88/51 L [Right Brachial artery] O2 Saturation 93 Oxygen O2 Source Nasal cannula Oxygen Flow Rate 3 I&O (Last 24 Hrs): Intake and Output Totals x24h 04/30/21 05/01/21 05/02/21 23:59 23:59 23:59 Intake Total 1170 840 Output Total 0 Balance 0 1170 840 General: Alert, Oriented x3, Mild distress HEENT: PERRLA, EOMI Neck: Supple, No JVD Neuro: Alert, Oriented Times 3 Cardiovascular: Regular rate, No murmurs Respiratory: Chest non-tender, Other (Mild to moderate dyspnea, Crackles in lung bases bilaterally) Abdomen: Normal bowel sounds, Soft, No tenderness Extremities: No clubbing, No cyanosis, No edema, No tenderness/swelling Skin: No rashes, No breakdown - Results Results: Laboratory Results WBC 7.3 x10^3/uL (4.8-10.8) 05/02/21 05:40 RBC 4.64 10^6/uL (4.20-5.40) 05/02/21 05:40 Hgb 13.0 g/dL (12.0-16.0) 05/02/21 05:40 Hct 38.6 % (37.0-47.0) 05/02/21 05:40 MCV 83.2 fL (81.0-99.0) 05/02/21 05:40 MCH 28.0 pg (27.0-31.0) 05/02/21 05:40 MCHC 33.7 g/dL (32.0-36.0) 05/02/21 05:40 RDW 13.0 % (12.0-15.0) 05/02/21 05:40 Plt Count 306 10^3/uL (130-450) 05/02/21 05:40 MPV 9.5 fL (7.9-10.8) 05/02/21 05:40 Neut # (Auto) 6.3 10^3/uL (1.5-6.6) 05/02/21 05:40 Lymph # (Auto) 0.7 10^3/uL (1.5-3.5) L 05/02/21 05:40 Mclean # (Auto) 0.3 10^3/uL (0.0-1.0) 05/02/21 05:40 Eos # (Auto) 0.0 10^3/uL (0.0-0.7) 05/02/21 05:40 Baso # (Auto) 0.0 10^3/uL (0.0-0.1) 05/02/21 05:40 Absolute Nucleated RBC 0.00 x10^3/uL 05/02/21 05:40 Band Neuts % (Manual) Not Reportable 05/01/21 04:41 Abnorm Lymph % (Manual) Not Reportable 05/01/21 04:41 Nucleated RBC % 0.0 /100WBC 05/02/21 05:40 Neutrophils # (Manual) Not Reportable 05/01/21 04:41 Lymphocytes # (Manual) Not Reportable 05/01/21 04:41 Monocytes # (Manual) Not Reportable 05/01/21 04:41 Eosinophils # (Manual) Not Reportable 05/01/21 04:41 Basophils # (Manual) Not Reportable 05/01/21 04:41 Differential Comment MANUAL=AUTO DIFF 05/01/21 04:41 Platelet Estimate NORMAL (130-450,000) (NORMAL) 05/01/21 04:41 Platelet Morphology NORMAL APPEARANCE (NORMAL) 05/01/21 04:41 RBC Morph Micro Appear NORMAL APPEARANCE (NORMAL) 05/01/21 04:41 D-Dimer > 1050.0 ng/mL (200.0-255.0) H 04/30/21 22:18 Sodium 137 mmol/L (135-145) 05/02/21 05:40 Potassium 3.9 mmol/L (3.5-5.0) 05/02/21 05:40 Chloride 103 mmol/L (101-111) 05/02/21 05:40 Carbon Dioxide 22 mmol/L (21-32) 05/02/21 05:40 Anion Gap 12.0 (6-13) 05/02/21 05:40 BUN 26 mg/dL (6-20) H 05/02/21 05:40 Creatinine 0.7 mg/dL (0.4-1.0) 05/02/21 05:40 Estimated GFR (MDRD) 88 (>89) L 05/02/21 05:40 Glucose 293 mg/dL (70-100) H 05/02/21 05:40 POC Whole Bld Glucose 264 mg/dL (70 - 100) H 05/02/21 11:05 Estimat Average Glucose 174 mg/dL (70-100) H 05/01/21 04:41 Hemoglobin A1c % 7.7 % (4.27-6.07) H 05/01/21 04:41 Calcium 8.8 mg/dL (8.5-10.3) 05/02/21 05:40 Phosphorus 3.4 mg/dL (2.5-4.6) 04/30/21 21:45 Magnesium 2.2 mg/dL (1.7-2.8) 05/02/21 05:40 Total Bilirubin 0.7 mg/dL (0.2-1.0) 04/30/21 21:45 AST 20 IU/L (10-42) 04/30/21 21:45 ALT 17 IU/L (10-60) 04/30/21 21:45 Alkaline Phosphatase 81 IU/L (42-121) 04/30/21 21:45 Troponin I High Sens 5.9 ng/L (2.3-14.8) 04/30/21 23:35 Total Protein 7.0 g/dL (6.7-8.2) 04/30/21 21:45 Albumin 3.4 g/dL (3.2-5.5) 04/30/21 21:45 Globulin 3.6 g/dL (2.1-4.2) 04/30/21 21:45 Albumin/Globulin Ratio 0.9 (1.0-2.2) L 04/30/21 21:45 - Procedures Procedures: Procedures EXCISION OF LEFT KNEE JOINT, PERC ENDO APPROACH (07/21/16) EXCISION OF LEFT LOWER LEG TENDON, OPEN APPROACH (03/15/16) EXCISION OF RIGHT KNEE JOINT, PERC ENDO APPROACH (07/16/15) EXTIRPATION OF MATTER FROM L KNEE JT, PERC ENDO APPROACH (07/21/16) REPAIR LEFT KNEE JOINT, PERCUTANEOUS ENDOSCOPIC APPROACH (07/21/16) SUPPLEMENT LEFT ANKLE TENDON WITH SYNTH SUB, OPEN APPROACH (03/15/16) Sepsis Event Note (H) - Evaluation Current Stage of Sepsis: Ruled out ABX Reporting Has patient been on IV antibiotics over the past 48 hours?: No
[2021-05-02] MEDS: guaiFENesin/CODEINE 5 ML UDC PO PRN (19:20)
[2021-05-02] MEDS ORDERED: INSULIN GLARGINE 300 UNIT/3 ML PEN SUBQ ONE ×2 (23:00)
[2021-05-03] MEDS: KETOROLAC 15 MG/ML VIAL IVP PRN ×3 (00:59→21:10)
[2021-05-03] MEDS: traZODone 50 MG TABLET PO PRN ×2 (00:59→22:56)
[2021-05-03] MEDS: SODIUM CHLORIDE FLUSH 0.9% 10 ML SYRINGE IVP SCH ×3 (01:20→17:35)
[2021-05-03 05:51] LABS: BASOPHILS % (AUTO) 0.3 %; EOSINOPHILS % (AUTO) 0.1 %; HCT - HEMATOCRIT 39.4 % (37.0-47.0); HGB - HEMOGLOBIN 13.1 g/dL (12.0-16.0); LYMPHOCYTES # (AUTO) 0.6 10^3/uL (1.5-3.5); LYMPHOCYTES % (AUTO) 8.6 %; MEAN CORPUSCULAR HEMOGLOBIN 27.9 pg (27.0-31.0); MEAN CORPUSCULAR HGB CONC 33.2 g/dL (32.0-36.0); MEAN CORPUSCULAR VOLUME 83.8 fL (81.0-99.0); MEAN PLATELET VOLUME 9.2 fL (7.9-10.8); MONOCYTES # (AUTO) 0.4 10^3/uL (0.0-1.0); MONOCYTES % (AUTO) 5.2 %; NEUTROPHILS # (AUTO) 5.7 10^3/uL (1.5-6.6); NEUTROPHILS % (AUTO) 84.5 %; PLT - PLATELET COUNT 328 10^3/uL (130-450); WHITE BLOOD COUNT 6.8 x10^3/uL (4.8-10.8)
[2021-05-03 05:55] LABS: CALCIUM 8.3 mg/dL (8.5-10.3); CREATININE 0.6 mg/dL (0.4-1.0); MAGNESIUM 2.2 mg/dL (1.7-2.8); POTASSIUM 3.9 mmol/L (3.5-5.0)
[2021-05-03] MEDS: INSULIN GLARGINE 300 UNIT/3 ML PEN SUBQ SCH (08:05)
[2021-05-03] MEDS: INSULIN ASPART 300 UNIT/3 ML PEN SUBQ SCH ×7 (08:06→21:12)
[2021-05-03] MEDS: PANTOPRAZOLE 40 MG TABLET PO SCH (08:07)
[2021-05-03] MEDS: ENOXAPARIN 40 MG/0.4 ML SYRINGE SUBQ SCH (08:07)
--- NOTE | 2021-05-03 12:48 | PROVIDER PROGRESS NOTE ---
Assessment/Plan - Problem List (1) Acute respiratory failure with hypoxia Assessment/Plan: pt need high flow O2 on today. pt did not present acute respiratory distress continue Decadron Day 2, Remdesivir Day 2/ Lovenox for DVT prophylaxis, supplement of O2 as needed (2) COVID-19 need high flow of O2 on today Decadron Day 2/, Remdesivir Day 2/5 Lovenox for DVT prophylaxis (3) Diabetes mellitus HgA1C 7.7 On lantus 5 units qam and 20 units qpm Accu checks qAC and HS, SSI - Current Meds Current Meds: Current Medications Generic Name Dose Route Start Last Admin Trade Name Freq PRN Reason Stop Dose Admin Acetaminophen 650 mg 04/30/21 20:07 05/01/21 22:23 Acetaminophen 325 Mg Tablet PO 650 mg Q4HR PRN Administration Pain 1 to 4 Dexamethasone 6 mg 05/01/21 09:00 05/02/21 16:00 Dexamethasone 10 Mg/Ml Vial IVP 05/09/21 09:01 Not Given DAILY [facility] Enoxaparin Sodium 40 mg 05/01/21 09:00 05/03/21 08:07 Enoxaparin 40 Mg/0.4 Ml Syringe SUBQ 40 mg DAILY [facility] Administration Guaifenesin/Codeine Phosphate 5 ml 05/02/21 17:38 05/02/21 19:20 Guaifenesin/Codeine 5 Ml Udc PO 5 ml Q6HR PRN Administration Cough Remdesivir 100 mg/ Sodium 100 mls @ 200 mls/hr 05/02/21 09:00 05/02/21 16:01 Chloride IV 05/05/21 09:29 Not Given DAILY [facility] Insulin Aspart 4 unit 05/02/21 08:00 05/03/21 12:30 Insulin Aspart 300 Unit/3 Ml Pen SUBQ 4 unit TIDWM [facility] Administration Insulin Aspart 3 - 11 unit 05/02/21 21:00 05/03/21 12:30 Insulin Aspart 300 Unit/3 Ml Pen SUBQ 5 unit 0800,1200,1700,2100 [facility] Administration Protocol Insulin Glargine 20 unit 05/03/21 08:00 05/03/21 08:05 Insulin Glargine 300 Unit/3 Ml Pen SUBQ 20 unit QDBREAKFAST [facility] Administration Ketorolac Tromethamine 15 mg 05/01/21 22:19 05/03/21 00:59 Ketorolac 15 Mg/Ml Vial IVP 05/06/21 22:18 15 mg Q6HR PRN Administration PAIN Pantoprazole Sodium 40 mg 05/01/21 23:00 05/03/21 08:07 Pantoprazole 40 Mg Tablet PO 40 mg DAILY [facility] Administration Sodium Chloride 10 ml 04/30/21 20:07 05/01/21 22:40 Sodium Chloride Flush 0.9% 10 Ml Syringe IVP 10 ml PRN PRN Administration NEEDED PER PROVIDER ORDERS Sodium Chloride 10 ml 05/01/21 01:00 05/03/21 01:20 Sodium Chloride Flush 0.9% 10 Ml Syringe IVP 10 ml 0100,0900,1700 [facility] Administration Trazodone HCl 50 mg 05/01/21 22:18 05/03/21 00:59 Trazodone 50 Mg Tablet PO 50 mg HS PRN Administration NEEDED PER PROVIDER ORDERS - Lab Result Fish Bone Diagrams: 05/03/21 05:10 05/03/21 05:10 - Additional Planning My Orders: My Active Orders 05/03/21 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 [CONS] Routine 05/03/21 08:25 Telemetry- [RC] Q4HR Subjective - Subjective Patient Reports: Resting Comfortably Objective Vital Signs: Vital Signs - 24 hr 05/02/21 05/02/21 05/03/21 16:55 20:58 01:10 Temperature 37.0 C 36.6 C 36.8 C Heart Rate [ 53 L 45 L 49 L Brachial] Respiratory 20 16 18 Rate Blood Pressure 102/49 L 105/42 L 121/59 L [Right Brachial artery] Blood Pressure [Right Radial artery] O2 Saturation 95 99 93 05/03/21 05/03/21 05/03/21 05:00 07:45 12:08 Temperature 36.4 C L 36.4 C L 36.9 C Heart Rate [ 42 L 52 L 58 L Brachial] Respiratory 16 16 22 Rate Blood Pressure 107/53 L [Right Brachial artery] Blood Pressure 110/60 107/41 L [Right Radial artery] O2 Saturation 98 94 96 Oxygen O2 Source HHFNC Oxygen Flow Rate 3 I&O (Last 24 Hrs): Intake and Output Totals x24h 01/02/22 01/03/22 01/04/22 23:59 23:59 23:59 Intake Total 1170 1530 820 Balance 1170 1530 820 General: Alert, Oriented x3, Cooperative, No acute distress HEENT: Atraumatic Neck: Supple Lymphatic: no adenopathy Neuro: Alert, Non Focal, Oriented Times 3 Cardiovascular: Regular rate, Normal S1, Normal S2 Respiratory: Chest non-tender, No respiratory distress Abdomen: Normal bowel sounds, Soft Extremities: Normal pulses - Results Results: Laboratory Results WBC 6.8 x10^3/uL (4.8-10.8) 05/03/21 05:10 RBC 4.70 10^6/uL (4.20-5.40) 05/03/21 05:10 Hgb 13.1 g/dL (12.0-16.0) 05/03/21 05:10 Hct 39.4 % (37.0-47.0) 05/03/21 05:10 MCV 83.8 fL (81.0-99.0) 05/03/21 05:10 MCH 27.9 pg (27.0-31.0) 05/03/21 05:10 MCHC 33.2 g/dL (32.0-36.0) 05/03/21 05:10 RDW 13.0 % (12.0-15.0) 05/03/21 05:10 Plt Count 328 10^3/uL (130-450) 05/03/21 05:10 MPV 9.2 fL (7.9-10.8) 05/03/21 05:10 Neut # (Auto) 5.7 10^3/uL (1.5-6.6) 05/03/21 05:10 Lymph # (Auto) 0.6 10^3/uL (1.5-3.5) L 05/03/21 05:10 Robertson # (Auto) 0.4 10^3/uL (0.0-1.0) 05/03/21 05:10 Eos # (Auto) 0.0 10^3/uL (0.0-0.7) 05/03/21 05:10 Baso # (Auto) 0.0 10^3/uL (0.0-0.1) 05/03/21 05:10 Absolute Nucleated RBC 0.00 x10^3/uL 05/03/21 05:10 Band Neuts % (Manual) Not Reportable 05/01/21 04:41 Abnorm Lymph % (Manual) Not Reportable 05/01/21 04:41 Nucleated RBC % 0.0 /100WBC 05/03/21 05:10 Neutrophils # (Manual) Not Reportable 05/01/21 04:41 Lymphocytes # (Manual) Not Reportable 05/01/21 04:41 Monocytes # (Manual) Not Reportable 05/01/21 04:41 Eosinophils # (Manual) Not Reportable 05/01/21 04:41 Basophils # (Manual) Not Reportable 05/01/21 04:41 Differential Comment MANUAL=AUTO DIFF 05/01/21 04:41 Platelet Estimate NORMAL (130-450,000) (NORMAL) 05/01/21 04:41 Platelet Morphology NORMAL APPEARANCE (NORMAL) 05/01/21 04:41 RBC Morph Micro Appear NORMAL APPEARANCE (NORMAL) 05/01/21 04:41 D-Dimer > 1050.0 ng/mL (200.0-255.0) H 04/30/21 22:18 Sodium 136 mmol/L (135-145) 05/03/21 05:10 Potassium 3.9 mmol/L (3.5-5.0) 05/03/21 05:10 Chloride 103 mmol/L (101-111) 05/03/21 05:10 Carbon Dioxide 22 mmol/L (21-32) 05/03/21 05:10 Anion Gap 11.0 (6-13) 05/03/21 05:10 BUN 23 mg/dL (6-20) H 05/03/21 05:10 Creatinine 0.6 mg/dL (0.4-1.0) 05/03/21 05:10 Estimated GFR (MDRD) 105 (>89) 05/03/21 05:10 Glucose 195 mg/dL (70-100) H 05/03/21 05:10 POC Whole Bld Glucose 207 mg/dL (70 - 100) H 05/03/21 12:01 Estimat Average Glucose 174 mg/dL (70-100) H 05/01/21 04:41 Hemoglobin A1c % 7.7 % (4.27-6.07) H 05/01/21 04:41 Calcium 8.3 mg/dL (8.5-10.3) L 05/03/21 05:10 Phosphorus 3.4 mg/dL (2.5-4.6) 04/30/21 21:45 Magnesium 2.2 mg/dL (1.7-2.8) 05/03/21 05:10 Total Bilirubin 0.7 mg/dL (0.2-1.0) 04/30/21 21:45 AST 20 IU/L (10-42) 04/30/21 21:45 ALT 17 IU/L (10-60) 04/30/21 21:45 Alkaline Phosphatase 81 IU/L (42-121) 04/30/21 21:45 Troponin I High Sens 5.9 ng/L (2.3-14.8) 04/30/21 23:35 Total Protein 7.0 g/dL (6.7-8.2) 04/30/21 21:45 Albumin 3.4 g/dL (3.2-5.5) 04/30/21 21:45 Globulin 3.6 g/dL (2.1-4.2) 04/30/21 21:45 Albumin/Globulin Ratio 0.9 (1.0-2.2) L 04/30/21 21:45 - Procedures Procedures: Procedures EXCISION OF LEFT KNEE JOINT, PERC ENDO APPROACH (07/21/16) EXCISION OF LEFT LOWER LEG TENDON, OPEN APPROACH (03/15/16) EXCISION OF RIGHT KNEE JOINT, PERC ENDO APPROACH (07/16/15) EXTIRPATION OF MATTER FROM L KNEE JT, PERC ENDO APPROACH (07/21/16) REPAIR LEFT KNEE JOINT, PERCUTANEOUS ENDOSCOPIC APPROACH (07/21/16) SUPPLEMENT LEFT ANKLE TENDON WITH SYNTH SUB, OPEN APPROACH (03/15/16) Sepsis Event Note (H) - Evaluation Current Stage of Sepsis: Ruled out ABX Reporting Has patient been on IV antibiotics over the past 48 hours?: No Current Medications - Current Medications Current Medications: Active Medications Acetaminophen (Acetaminophen 325 Mg Tablet) 650 mg PO Q4HR PRN PRN Reason: Pain 1 to 4 Last Admin: 05/01/21 22:23 Dose: 650 mg Documented by: Dexamethasone (Dexamethasone 10 Mg/Ml Vial) 6 mg IVP DAILY [facility] Stop: 05/09/21 09:01 Last Admin: 05/02/21 16:00 Dose: Not Given Documented by: Enoxaparin Sodium (Enoxaparin 40 Mg/0.4 Ml Syringe) 40 mg SUBQ DAILY [facility] Last Admin: 05/03/21 08:07 Dose: 40 mg Documented by: Guaifenesin/Codeine Phosphate (Guaifenesin/Codeine 5 Ml Udc) 5 ml PO Q6HR PRN PRN Reason: Cough Last Admin: 05/02/21 19:20 Dose: 5 ml Documented by: Remdesivir 100 mg/ Sodium (Chloride) 100 mls @ 200 mls/hr IV DAILY [facility] Stop: 05/05/21 09:29 Last Admin: 05/02/21 16:01 Dose: Not Given Documented by: Insulin Aspart (Insulin Aspart 300 Unit/3 Ml Pen) 4 unit SUBQ TIDWM [facility] Last Admin: 05/03/21 12:30 Dose: 4 unit Documented by: Insulin Aspart (Insulin Aspart 300 Unit/3 Ml Pen) 3 - 11 unit SUBQ 0800,1200,1700,2100 [facility]; Protocol Last Admin: 05/03/21 12:30 Dose: 5 unit Documented by: Insulin Glargine (Insulin Glargine 300 Unit/3 Ml Pen) 20 unit SUBQ QDBREAKFAST [facility] Last Admin: 05/03/21 08:05 Dose: 20 unit Documented by: Ketorolac Tromethamine (Ketorolac 15 Mg/Ml Vial) 15 mg IVP Q6HR PRN PRN Reason: PAIN Stop: 05/06/21 22:18 Last Admin: 05/03/21 00:59 Dose: 15 mg Documented by: Pantoprazole Sodium (Pantoprazole 40 Mg Tablet) 40 mg PO DAILY [facility] Last Admin: 05/03/21 08:07 Dose: 40 mg Documented by: Prochlorperazine Edisylate (Prochlorperazine 10 Mg/2 Ml Vial) 10 mg IVP Q6HR PRN PRN Reason: Nausea / Vomiting Sodium Chloride (Sodium Chloride Flush 0.9% 10 Ml Syringe) 10 ml IVP PRN PRN PRN Reason: NEEDED PER PROVIDER ORDERS Last Admin: 05/01/21 22:40 Dose: 10 ml Documented by: Sodium Chloride (Sodium Chloride Flush 0.9% 10 Ml Syringe) 10 ml IVP 0100,0900,1700 [facility] Last Admin: 05/03/21 01:20 Dose: 10 ml Documented by: Trazodone HCl (Trazodone 50 Mg Tablet) 50 mg PO HS PRN PRN Reason: NEEDED PER PROVIDER ORDERS Last Admin: 05/03/21 00:59 Dose: 50 mg Documented by: Trazodone HCl 50 mg PO HS PRN 12/31/12 Omeprazole [PriLOSEC] 20 mg PO DAILY 01/12/14 Cetirizine [ZyrTEC] 10 mg PO DAILY PRN 07/18/16 Sucralfate [Carafate] 1 gm PO QID 05/02/21 Venlafaxine ER [Effexor ER] 37.5 mg PO DAILY 05/02/21
--- NOTE | 2021-05-03 13:58 | CONSULTATION NOTE ---
Consultation Report: Call for assist with PIV placement after multiple failed attempts, difficult stick hx. US used to place 20ga IV at R FA, attempt x1. Secured, easily aspirates and flushes through cap. Patient tolerated the procedure without complication or complaint.
[2021-05-03] MEDS: REMDESIVIR 100MG VIAL 100 MG in SODIUM CHLORIDE 0.9% 100ML 100 ML IV SCH (14:03)
[2021-05-03] MEDS: DEXAMETHASONE 10 MG/ML VIAL IVP SCH (14:03)
[2021-05-03] MEDS: ACETAMINOPHEN 325 MG TABLET PO PRN ×2 (14:09→21:10)
[2021-05-03] MEDS: guaiFENesin/CODEINE 5 ML UDC PO PRN (17:34)
[2021-05-03] MEDS: SODIUM CHLORIDE FLUSH 0.9% 10 ML SYRINGE IVP PRN (21:13)
[2021-05-03] MEDS ORDERED: INSULIN ASPART 300 UNIT/3 ML PEN SUBQ ONE (22:56)
[2021-05-04] MEDS: SODIUM CHLORIDE FLUSH 0.9% 10 ML SYRINGE IVP SCH ×3 (03:21→17:20)
[2021-05-04 05:53] LABS: CALCIUM 8.3 mg/dL (8.5-10.3); CREATININE 0.6 mg/dL (0.4-1.0); MAGNESIUM 2.2 mg/dL (1.7-2.8); POTASSIUM 3.7 mmol/L (3.5-5.0)
[2021-05-04 06:21] LABS: BASOPHILS % (AUTO) 0.1 %; EOSINOPHILS % (AUTO) 0.1 %; HGB - HEMOGLOBIN 12.7 g/dL (12.0-16.0); LYMPHOCYTES # (AUTO) 0.7 10^3/uL (1.5-3.5); LYMPHOCYTES % (AUTO) 10.5 %; MEAN CORPUSCULAR HEMOGLOBIN 27.9 pg (27.0-31.0); MEAN CORPUSCULAR HGB CONC 33.4 g/dL (32.0-36.0); MEAN CORPUSCULAR VOLUME 83.5 fL (81.0-99.0); MONOCYTES # (AUTO) 0.3 10^3/uL (0.0-1.0); MONOCYTES % (AUTO) 4.4 %; NEUTROPHILS # (AUTO) 5.7 10^3/uL (1.5-6.6); NEUTROPHILS % (AUTO) 83.9 %; PLT - PLATELET COUNT 309 10^3/uL (130-450); RED BLOOD COUNT 4.55 10^6/uL (4.20-5.40); RED CELL DISTRIBUTION WIDTH 13.1 % (12.0-15.0); WHITE BLOOD COUNT 6.8 x10^3/uL (4.8-10.8)
[2021-05-04] MEDS: INSULIN ASPART 300 UNIT/3 ML PEN SUBQ SCH ×7 (08:43→21:22)
[2021-05-04] MEDS: INSULIN GLARGINE 300 UNIT/3 ML PEN SUBQ SCH (08:44)
[2021-05-04] MEDS: PANTOPRAZOLE 40 MG TABLET PO SCH (08:46)
[2021-05-04] MEDS: ENOXAPARIN 40 MG/0.4 ML SYRINGE SUBQ SCH (08:47)
[2021-05-04] MEDS: DEXAMETHASONE 10 MG/ML VIAL IVP SCH (08:47)
[2021-05-04] MEDS: KETOROLAC 15 MG/ML VIAL IVP PRN ×2 (09:23→21:56)
[2021-05-04] MEDS: REMDESIVIR 100MG VIAL 100 MG in SODIUM CHLORIDE 0.9% 100ML 100 ML IV SCH (09:30)
--- NOTE | 2021-05-04 14:37 | PROVIDER PROGRESS NOTE ---
Assessment/Plan - Problem List (1) Acute respiratory failure with hypoxia Assessment/Plan: 05/04 pt anxiously want to go to home but we did O2 desat study, on 4 liter of O2 with exertion, pt only had 88% O2 sat. she had 95% sat with 3 liter of O2 at the rest shown at vital sign. pt agree to stay at hospital now. continue covid 19 treatment course, continue supplement of O2 as needed. pt need high flow O2 on today. pt did not present acute respiratory distress continue Decadron Day 06/08, Remdesivir Day 06/04 Lovenox for DVT prophylaxis, supplement of O2 as needed (2) COVID-19 05/04 improved. pt had 95% O2 sat on 3 liter of O2 at rest. continue covid 19 treatment, supplement of O2 as needed. need high flow of O2 on today Decadron Day 06/08, Remdesivir Day / Lovenox for DVT prophylaxis (3) Diabetes mellitus pt is new diagnosis of diabetes, her HgA1C 7.7, pt also is on Steroid for Covid 19 treatment On lantus 20 units qpm, slide scale and increase schedule insulin tid, continue hypoglycemia protocol. Accu checks qAC and HS, SSI - Current Meds Current Meds: Current Medications Generic Name Dose Route Start Last Admin Trade Name Freq PRN Reason Stop Dose Admin Acetaminophen 650 mg 04/30/21 20:07 05/03/21 21:10 Acetaminophen 325 Mg Tablet PO 650 mg Q4HR PRN Administration Pain 1 to 4 Dexamethasone 6 mg 05/01/21 09:00 05/04/21 08:47 Dexamethasone 10 Mg/Ml Vial IVP 05/09/21 09:01 6 mg DAILY [facility] Administration Enoxaparin Sodium 40 mg 05/01/21 09:00 05/04/21 08:47 Enoxaparin 40 Mg/0.4 Ml Syringe SUBQ 40 mg DAILY [facility] Administration Guaifenesin/Codeine Phosphate 5 ml 05/02/21 17:38 05/03/21 17:34 Guaifenesin/Codeine 5 Ml Udc PO 5 ml Q6HR PRN Administration Cough Remdesivir 100 mg/ Sodium 100 mls @ 200 mls/hr 05/02/21 09:00 05/04/21 10:35 Chloride IV 05/05/21 09:29 Infused DAILY [facility] Infusion Insulin Aspart 3 - 11 unit 05/02/21 21:00 05/04/21 12:10 Insulin Aspart 300 Unit/3 Ml Pen SUBQ 5 unit 0800,1200,1700,2100 [facility] Administration Protocol Insulin Glargine 20 unit 05/03/21 08:00 05/04/21 08:44 Insulin Glargine 300 Unit/3 Ml Pen SUBQ 20 unit QDBREAKFAST [facility] Administration Ketorolac Tromethamine 15 mg 05/01/21 22:19 05/04/21 09:23 Ketorolac 15 Mg/Ml Vial IVP 05/06/21 22:18 15 mg Q6HR PRN Administration PAIN Pantoprazole Sodium 40 mg 05/01/21 23:00 05/04/21 08:46 Pantoprazole 40 Mg Tablet PO 40 mg DAILY [facility] Administration Sodium Chloride 10 ml 04/30/21 20:07 05/03/21 21:13 Sodium Chloride Flush 0.9% 10 Ml Syringe IVP 10 ml PRN PRN Administration NEEDED PER PROVIDER ORDERS Sodium Chloride 10 ml 05/01/21 01:00 05/04/21 08:47 Sodium Chloride Flush 0.9% 10 Ml Syringe IVP 10 ml 0100,0900,1700 [facility] Administration Trazodone HCl 50 mg 05/01/21 22:18 05/03/21 22:56 Trazodone 50 Mg Tablet PO 50 mg HS PRN Administration NEEDED PER PROVIDER ORDERS - Lab Result Fish Bone Diagrams: 05/04/21 05:09 05/04/21 05:09 - Additional Planning My Orders: My Active Orders 05/04/21 09:15 Oxygen Desat. Study w/Exercise [RC] .ONCE 05/04/21 14:27 Venlafaxine ER [Effexor ER] 37.5 mg PO DAILY 05/04/21 14:30 Sucralfate [Carafate] 1 gm PO QID 05/04/21 17:00 Insulin Aspart [NovoLOG] 6 unit SUBQ TIDWM Subjective - Subjective Patient Reports: Resting Comfortably Objective Vital Signs: Vital Signs - 24 hr 05/03/21 05/03/21 05/04/21 17:00 20:44 02:00 Temperature 36.5 C 36.7 C 36.4 C L Heart Rate [ 60 49 L 60 Brachial] Respiratory 18 18 19 Rate Blood Pressure 103/51 L [Right Brachial artery] Blood Pressure 113/47 L 98/67 [Right Radial artery] O2 Saturation 95 96 94 05/04/21 05/04/21 05/04/21 06:00 07:47 12:23 Temperature 36.6 C 36.7 C 36.5 C Heart Rate [ 51 L 66 Brachial] Respiratory 18 19 18 Rate Blood Pressure 121/65 107/63 113/58 L [Right Brachial artery] Blood Pressure [Right Radial artery] O2 Saturation 97 93 95 Oxygen O2 Source Nasal cannula Oxygen Flow Rate 3 I&O (Last 24 Hrs): Intake and Output Totals x24h 05/02/21 05/03/21 05/04/21 23:59 23:59 23:59 Intake Total 1530 1160 2250 Balance 1530 1160 2250 General: Alert, Oriented x3, Cooperative, Mild distress HEENT: Atraumatic Neck: Supple Lymphatic: no adenopathy Neuro: Alert, Non Focal, Oriented Times 3 Cardiovascular: Regular rate, Normal S1, Normal S2 Respiratory: Chest non-tender, No respiratory distress Abdomen: Normal bowel sounds, Soft Extremities: Normal pulses - Results Results: Laboratory Results WBC 6.8 x10^3/uL (4.8-10.8) 05/04/21 05:09 RBC 4.55 10^6/uL (4.20-5.40) 05/04/21 05:09 Hgb 12.7 g/dL (12.0-16.0) 05/04/21 05:09 Hct 38.0 % (37.0-47.0) 05/04/21 05:09 MCV 83.5 fL (81.0-99.0) 05/04/21 05:09 MCH 27.9 pg (27.0-31.0) 05/04/21 05:09 MCHC 33.4 g/dL (32.0-36.0) 05/04/21 05:09 RDW 13.1 % (12.0-15.0) 05/04/21 05:09 Plt Count 309 10^3/uL (130-450) 05/04/21 05:09 MPV 10.0 fL (7.9-10.8) 05/04/21 05:09 Neut # (Auto) 5.7 10^3/uL (1.5-6.6) 05/04/21 05:09 Lymph # (Auto) 0.7 10^3/uL (1.5-3.5) L 05/04/21 05:09 [place] # (Auto) 0.3 10^3/uL (0.0-1.0) 05/04/21 05:09 Eos # (Auto) 0.0 10^3/uL (0.0-0.7) 05/04/21 05:09 Baso # (Auto) 0.0 10^3/uL (0.0-0.1) 05/04/21 05:09 Absolute Nucleated RBC 0.00 x10^3/uL 05/04/21 05:09 Band Neuts % (Manual) Not Reportable 05/01/21 04:41 Abnorm Lymph % (Manual) Not Reportable 05/01/21 04:41 Nucleated RBC % 0.0 /100WBC 05/04/21 05:09 Neutrophils # (Manual) Not Reportable 05/01/21 04:41 Lymphocytes # (Manual) Not Reportable 05/01/21 04:41 Monocytes # (Manual) Not Reportable 05/01/21 04:41 Eosinophils # (Manual) Not Reportable 05/01/21 04:41 Basophils # (Manual) Not Reportable 05/01/21 04:41 Differential Comment MANUAL=AUTO DIFF 05/01/21 04:41 Platelet Estimate NORMAL (130-450,000) (NORMAL) 05/01/21 04:41 Platelet Morphology NORMAL APPEARANCE (NORMAL) 05/01/21 04:41 RBC Morph Micro Appear NORMAL APPEARANCE (NORMAL) 05/01/21 04:41 D-Dimer > 1050.0 ng/mL (200.0-255.0) H 04/30/21 22:18 Sodium 138 mmol/L (135-145) 05/04/21 05:09 Potassium 3.7 mmol/L (3.5-5.0) 05/04/21 05:09 Chloride 105 mmol/L (101-111) 05/04/21 05:09 Carbon Dioxide 21 mmol/L (21-32) 05/04/21 05:09 Anion Gap 12.0 (6-13) 05/04/21 05:09 BUN 19 mg/dL (6-20) 05/04/21 05:09 Creatinine 0.6 mg/dL (0.4-1.0) 05/04/21 05:09 Estimated GFR (MDRD) 105 (>89) 05/04/21 05:09 Glucose 160 mg/dL (70-100) H 05/04/21 05:09 POC Whole Bld Glucose 205 mg/dL (70 - 100) H 05/04/21 11:13 Estimat Average Glucose 174 mg/dL (70-100) H 05/01/21 04:41 Hemoglobin A1c % 7.7 % (4.27-6.07) H 05/01/21 04:41 Calcium 8.3 mg/dL (8.5-10.3) L 05/04/21 05:09 Phosphorus 3.4 mg/dL (2.5-4.6) 04/30/21 21:45 Magnesium 2.2 mg/dL (1.7-2.8) 05/04/21 05:09 Total Bilirubin 0.7 mg/dL (0.2-1.0) 04/30/21 21:45 AST 20 IU/L (10-42) 04/30/21 21:45 ALT 17 IU/L (10-60) 04/30/21 21:45 Alkaline Phosphatase 81 IU/L (42-121) 04/30/21 21:45 Troponin I High Sens 5.9 ng/L (2.3-14.8) 04/30/21 23:35 Total Protein 7.0 g/dL (6.7-8.2) 04/30/21 21:45 Albumin 3.4 g/dL (3.2-5.5) 04/30/21 21:45 Globulin 3.6 g/dL (2.1-4.2) 04/30/21 21:45 Albumin/Globulin Ratio 0.9 (1.0-2.2) L 04/30/21 21:45 - Procedures Procedures: Procedures EXCISION OF LEFT KNEE JOINT, PERC ENDO APPROACH (07/21/16) EXCISION OF LEFT LOWER LEG TENDON, OPEN APPROACH (03/15/16) EXCISION OF RIGHT KNEE JOINT, PERC ENDO APPROACH (07/16/15) EXTIRPATION OF MATTER FROM L KNEE JT, PERC ENDO APPROACH (07/21/16) REPAIR LEFT KNEE JOINT, PERCUTANEOUS ENDOSCOPIC APPROACH (07/21/16) SUPPLEMENT LEFT ANKLE TENDON WITH SYNTH SUB, OPEN APPROACH (03/15/16) Sepsis Event Note (H) - Evaluation Current Stage of Sepsis: Ruled out ABX Reporting Has patient been on IV antibiotics over the past 48 hours?: No Current Medications - Current Medications Current Medications: Active Medications Acetaminophen (Acetaminophen 325 Mg Tablet) 650 mg PO Q4HR PRN PRN Reason: Pain 1 to 4 Last Admin: 05/03/21 21:10 Dose: 650 mg Documented by: Dexamethasone (Dexamethasone 10 Mg/Ml Vial) 6 mg IVP DAILY [facility] Stop: 05/09/21 09:01 Last Admin: 05/04/21 08:47 Dose: 6 mg Documented by: Enoxaparin Sodium (Enoxaparin 40 Mg/0.4 Ml Syringe) 40 mg SUBQ DAILY [facility] Last Admin: 05/04/21 08:47 Dose: 40 mg Documented by: Guaifenesin/Codeine Phosphate (Guaifenesin/Codeine 5 Ml Udc) 5 ml PO Q6HR PRN PRN Reason: Cough Last Admin: 05/03/21 17:34 Dose: 5 ml Documented by: Remdesivir 100 mg/ Sodium (Chloride) 100 mls @ 200 mls/hr IV DAILY [facility] Stop: 05/05/21 09:29 Last Infusion: 05/04/21 10:35 Dose: Infused Documented by: Insulin Aspart (Insulin Aspart 300 Unit/3 Ml Pen) 3 - 11 unit SUBQ 0800,1200,1700,2100 [facility]; Protocol Last Admin: 05/04/21 12:10 Dose: 5 unit Documented by: Insulin Aspart (Insulin Aspart 300 Unit/3 Ml Pen) 6 unit SUBQ TIDWM [facility] Insulin Glargine (Insulin Glargine 300 Unit/3 Ml Pen) 20 unit SUBQ QDBREAKFAST [facility] Last Admin: 05/04/21 08:44 Dose: 20 unit Documented by: Ketorolac Tromethamine (Ketorolac 15 Mg/Ml Vial) 15 mg IVP Q6HR PRN PRN Reason: PAIN Stop: 05/06/21 22:18 Last Admin: 05/04/21 09:23 Dose: 15 mg Documented by: Pantoprazole Sodium (Pantoprazole 40 Mg Tablet) 40 mg PO DAILY [facility] Last Admin: 05/04/21 08:46 Dose: 40 mg Documented by: Prochlorperazine Edisylate (Prochlorperazine 10 Mg/2 Ml Vial) 10 mg IVP Q6HR PRN PRN Reason: Nausea / Vomiting Sodium Chloride (Sodium Chloride Flush 0.9% 10 Ml Syringe) 10 ml IVP PRN PRN PRN Reason: NEEDED PER PROVIDER ORDERS Last Admin: 05/03/21 21:13 Dose: 10 ml Documented by: Sodium Chloride (Sodium Chloride Flush 0.9% 10 Ml Syringe) 10 ml IVP 0100,0900,1700 [facility] Last Admin: 05/04/21 08:47 Dose: 10 ml Documented by: Sucralfate (Sucralfate 1 Gm/10 Ml Udc) 1 gm PO QID [facility] Trazodone HCl (Trazodone 50 Mg Tablet) 50 mg PO HS PRN PRN Reason: NEEDED PER PROVIDER ORDERS Last Admin: 05/03/21 22:56 Dose: 50 mg Documented by: Venlafaxine HCl (Venlafaxine Er 37.5 Mg Capsule) 37.5 mg PO DAILY [facility] Trazodone HCl 50 mg PO HS PRN 12/31/12 Omeprazole [PriLOSEC] 20 mg PO DAILY 01/12/14 Cetirizine [ZyrTEC] 10 mg PO DAILY PRN 07/18/16 Sucralfate [Carafate] 1 gm PO QID 05/02/21 Venlafaxine ER [Effexor ER] 37.5 mg PO DAILY 05/02/21
[2021-05-04] MEDS: VENLAFAXINE ER 37.5 MG CAPSULE PO SCH (14:56)
[2021-05-04] MEDS: SUCRALFATE 1 GM/10 ML UDC PO SCH ×2 (17:19→21:21)
[2021-05-04] MEDS: ACETAMINOPHEN 325 MG TABLET PO PRN (21:56)
[2021-05-04] MEDS: guaiFENesin/CODEINE 5 ML UDC PO PRN (21:56)
[2021-05-04] MEDS: traZODone 50 MG TABLET PO PRN (23:05)
[2021-05-05 05:19] LABS: BASOPHILS % (AUTO) 0.2 %; EOSINOPHILS % (AUTO) 0.5 %; HCT - HEMATOCRIT 37.5 % (37.0-47.0); HGB - HEMOGLOBIN 12.5 g/dL (12.0-16.0); LYMPHOCYTES # (AUTO) 0.8 10^3/uL (1.5-3.5); LYMPHOCYTES % (AUTO) 12.9 %; MEAN CORPUSCULAR HEMOGLOBIN 27.7 pg (27.0-31.0); MEAN CORPUSCULAR HGB CONC 33.3 g/dL (32.0-36.0); MEAN PLATELET VOLUME 9.3 fL (7.9-10.8); MONOCYTES # (AUTO) 0.4 10^3/uL (0.0-1.0); NEUTROPHILS # (AUTO) 5.2 10^3/uL (1.5-6.6); NEUTROPHILS % (AUTO) 79.3 %; PLT - PLATELET COUNT 289 10^3/uL (130-450); RED BLOOD COUNT 4.52 10^6/uL (4.20-5.40); RED CELL DISTRIBUTION WIDTH 13.2 % (12.0-15.0); WHITE BLOOD COUNT 6.5 x10^3/uL (4.8-10.8)
[2021-05-05 05:29] LABS: CALCIUM 8.3 mg/dL (8.5-10.3); CREATININE 0.6 mg/dL (0.4-1.0); MAGNESIUM 2.2 mg/dL (1.7-2.8); POTASSIUM 3.6 mmol/L (3.5-5.0)
[2021-05-05] MEDS: SODIUM CHLORIDE FLUSH 0.9% 10 ML SYRINGE IVP SCH ×3 (07:33→17:20)
[2021-05-05] MEDS: REMDESIVIR 100MG VIAL 100 MG in SODIUM CHLORIDE 0.9% 100ML 100 ML IV SCH (08:56)
[2021-05-05] MEDS: SUCRALFATE 1 GM/10 ML UDC PO SCH ×4 (08:57→21:37)
[2021-05-05] MEDS: guaiFENesin/CODEINE 5 ML UDC PO PRN (08:57)
[2021-05-05] MEDS: DEXAMETHASONE 10 MG/ML VIAL IVP SCH (08:58)
[2021-05-05] MEDS: ENOXAPARIN 40 MG/0.4 ML SYRINGE SUBQ SCH (08:58)
[2021-05-05] MEDS: INSULIN GLARGINE 300 UNIT/3 ML PEN SUBQ SCH (08:59)
[2021-05-05] MEDS: INSULIN ASPART 300 UNIT/3 ML PEN SUBQ SCH ×7 (09:00→21:41)
[2021-05-05] MEDS: VENLAFAXINE ER 37.5 MG CAPSULE PO SCH (09:01)
[2021-05-05] MEDS: PANTOPRAZOLE 40 MG TABLET PO SCH (09:01)
[2021-05-05] MEDS: KETOROLAC 15 MG/ML VIAL IVP PRN ×2 (10:00→18:55)
--- NOTE | 2021-05-05 13:24 | PROVIDER PROGRESS NOTE ---
Assessment/Plan - Problem List (1) Acute respiratory failure with hypoxia Assessment/Plan: 05/05 pt feel better and had good sleep on last night, but pt still has 92% on 3 liter of O2 at rest. continue covid 19 treatment course, continue supplement of O2 as needed. plan to have O2 desat on tomorrow to see if pt can be d/c with home O2 05/04 pt anxiously want to go to home but we did O2 desat study, on 4 liter of O2 with exertion, pt only had 88% O2 sat. she had 95% sat with 3 liter of O2 at the rest shown at vital sign. pt agree to stay at hospital now. continue covid 19 treatment course, continue supplement of O2 as needed. pt need high flow O2 on today. pt did not present acute respiratory distress continue Decadron Day 06/08, Remdesivir Day / Lovenox for DVT prophylaxis, supplement of O2 as needed (2) COVID-19 05/04 improved. pt had 95% O2 sat on 3 liter of O2 at rest. continue covid 19 treatment, supplement of O2 as needed. need high flow of O2 on today Decadron Day 06/08, Remdesivir Day 2/ Lovenox for DVT prophylaxis (3) Diabetes mellitus pt is new diagnosis of diabetes, her HgA1C 7.7, pt also is on Steroid for Covid 19 treatment On lantus 20 units qpm, slide scale and increase schedule insulin tid, continue hypoglycemia protocol. Accu checks qAC and HS, SSI - Current Meds Current Meds: Current Medications Generic Name Dose Route Start Last Admin Trade Name Freq PRN Reason Stop Dose Admin Acetaminophen 650 mg 04/30/21 20:07 05/04/21 21:56 Acetaminophen 325 Mg Tablet PO 650 mg Q4HR PRN Administration Pain 1 to 4 Enoxaparin Sodium 40 mg 05/01/21 09:00 05/05/21 08:58 Enoxaparin 40 Mg/0.4 Ml Syringe SUBQ 40 mg DAILY [facility]ORDALIZA Administration Guaifenesin/Codeine Phosphate 5 ml 05/02/21 17:38 05/05/21 08:57 Guaifenesin/Codeine 5 Ml Udc PO 5 ml Q6HR PRN Administration Cough Insulin Aspart 3 - 11 unit 05/02/21 21:00 05/05/21 12:09 Insulin Aspart 300 Unit/3 Ml Pen SUBQ 5 unit 0800,1200,1700,2100 [facility]A Administration Protocol Insulin Aspart 6 unit 05/04/21 17:00 05/05/21 12:11 Insulin Aspart 300 Unit/3 Ml Pen SUBQ 6 unit TIDWM [facility]ALIZA Administration Insulin Glargine 20 unit 05/03/21 08:00 05/05/21 08:59 Insulin Glargine 300 Unit/3 Ml Pen SUBQ 20 unit QDBREAKFAST [facility]ALIZA Administration Ketorolac Tromethamine 15 mg 05/01/21 22:19 05/05/21 10:00 Ketorolac 15 Mg/Ml Vial IVP 05/06/21 22:18 15 mg Q6HR PRN Administration PAIN Sodium Chloride 10 ml 04/30/21 20:07 05/03/21 21:13 Sodium Chloride Flush 0.9% 10 Ml Syringe IVP 10 ml PRN PRN Administration NEEDED PER PROVIDER ORDERS Sodium Chloride 10 ml 05/01/21 01:00 05/05/21 09:01 Sodium Chloride Flush 0.9% 10 Ml Syringe IVP 10 ml 0100,0900,1700 [facility]A Administration Sucralfate 1 gm 05/04/21 17:00 05/05/21 12:09 Sucralfate 1 Gm/10 Ml Udc PO 1 gm QID [facility]AL[facility]A Administration Trazodone HCl 50 mg 05/01/21 22:18 05/04/21 23:05 Trazodone 50 Mg Tablet PO 50 mg HS PRN Administration NEEDED PER PROVIDER ORDERS Venlafaxine HCl 37.5 mg 05/04/21 14:27 05/05/21 09:01 Venlafaxine Er 37.5 Mg Capsule PO 37.5 mg DAILY [facility]ALIZA Administration - Lab Result Fish Bone Diagrams: 05/05/21 04:57 05/05/21 04:57 - Additional Planning My Orders: My Active Orders 05/04/21 14:27 Venlafaxine ER [Effexor ER] 37.5 mg PO DAILY 05/04/21 17:00 Insulin Aspart [NovoLOG] 6 unit SUBQ TIDWM Sucralfate [Carafate] 1 gm PO QID Subjective - Subjective Patient Reports: Resting Comfortably Objective Vital Signs: Vital Signs - 24 hr 05/04/21 05/04/21 05/05/21 16:45 21:00 05:00 Temperature 36.7 C 36.6 C 36.6 C Heart Rate [ 53 L 59 L 44 L Brachial] Respiratory 18 20 17 Rate Blood Pressure 115/60 [Right Brachial artery] Blood Pressure 104/64 120/65 [Right Radial artery] O2 Saturation 93 92 96 05/05/21 05/05/21 07:43 13:00 Temperature 36.6 C 36.6 C Heart Rate [ 56 L 70 Brachial] Respiratory 18 18 Rate Blood Pressure 112/58 L 105/51 L [Right Brachial artery] Blood Pressure [Right Radial artery] O2 Saturation 92 92 Oxygen O2 Source Nasal cannula Oxygen Flow Rate 3 I&O (Last 24 Hrs): Intake and Output Totals x24h 05/03/21 05/04/21 05/05/21 23:59 23:59 23:59 Intake Total 1160 2550 980 Balance 1160 2550 980 General: Alert, Oriented x3, Cooperative, No acute distress HEENT: Atraumatic Neck: Supple Lymphatic: no adenopathy Neuro: Alert, Non Focal, Oriented Times 3 Cardiovascular: Regular rate, Normal S1, Normal S2 Respiratory: Chest non-tender, No respiratory distress Abdomen: Normal bowel sounds, Soft Extremities: Normal pulses - Results Results: Laboratory Results WBC 6.5 x10^3/uL (4.8-10.8) 05/05/21 04:57 RBC 4.52 10^6/uL (4.20-5.40) 05/05/21 04:57 Hgb 12.5 g/dL (12.0-16.0) 05/05/21 04:57 Hct 37.5 % (37.0-47.0) 05/05/21 04:57 MCV 83.0 fL (81.0-99.0) 05/05/21 04:57 MCH 27.7 pg (27.0-31.0) 05/05/21 04:57 MCHC 33.3 g/dL (32.0-36.0) 05/05/21 04:57 RDW 13.2 % (12.0-15.0) 05/05/21 04:57 Plt Count 289 10^3/uL (130-450) 05/05/21 04:57 MPV 9.3 fL (7.9-10.8) 05/05/21 04:57 Neut # (Auto) 5.2 10^3/uL (1.5-6.6) 05/05/21 04:57 Lymph # (Auto) 0.8 10^3/uL (1.5-3.5) L 05/05/21 04:57 [place] # (Auto) 0.4 10^3/uL (0.0-1.0) 05/05/21 04:57 Eos # (Auto) 0.0 10^3/uL (0.0-0.7) 05/05/21 04:57 Baso # (Auto) 0.0 10^3/uL (0.0-0.1) 05/05/21 04:57 Absolute Nucleated RBC 0.00 x10^3/uL 05/05/21 04:57 Band Neuts % (Manual) Not Reportable 05/01/21 04:41 Abnorm Lymph % (Manual) Not Reportable 05/01/21 04:41 Nucleated RBC % 0.0 /100WBC 05/05/21 04:57 Neutrophils # (Manual) Not Reportable 05/01/21 04:41 Lymphocytes # (Manual) Not Reportable 05/01/21 04:41 Monocytes # (Manual) Not Reportable 05/01/21 04:41 Eosinophils # (Manual) Not Reportable 05/01/21 04:41 Basophils # (Manual) Not Reportable 05/01/21 04:41 Differential Comment MANUAL=AUTO DIFF 05/01/21 04:41 Platelet Estimate NORMAL (130-450,000) (NORMAL) 05/01/21 04:41 Platelet Morphology NORMAL APPEARANCE (NORMAL) 05/01/21 04:41 RBC Morph Micro Appear NORMAL APPEARANCE (NORMAL) 05/01/21 04:41 D-Dimer > 1050.0 ng/mL (200.0-255.0) H 04/30/21 22:18 Sodium 139 mmol/L (135-145) 05/05/21 04:57 Potassium 3.6 mmol/L (3.5-5.0) 05/05/21 04:57 Chloride 107 mmol/L (101-111) 05/05/21 04:57 Carbon Dioxide 23 mmol/L (21-32) 05/05/21 04:57 Anion Gap 9.0 (6-13) 05/05/21 04:57 BUN 20 mg/dL (6-20) 05/05/21 04:57 Creatinine 0.6 mg/dL (0.4-1.0) 05/05/21 04:57 Estimated GFR (MDRD) 105 (>89) 05/05/21 04:57 Glucose 109 mg/dL (70-100) H 05/05/21 04:57 POC Whole Bld Glucose 196 mg/dL (70 - 100) H 05/05/21 11:03 Estimat Average Glucose 174 mg/dL (70-100) H 05/01/21 04:41 Hemoglobin A1c % 7.7 % (4.27-6.07) H 05/01/21 04:41 Calcium 8.3 mg/dL (8.5-10.3) L 05/05/21 04:57 Phosphorus 3.4 mg/dL (2.5-4.6) 04/30/21 21:45 Magnesium 2.2 mg/dL (1.7-2.8) 05/05/21 04:57 Total Bilirubin 0.7 mg/dL (0.2-1.0) 04/30/21 21:45 AST 20 IU/L (10-42) 04/30/21 21:45 ALT 17 IU/L (10-60) 04/30/21 21:45 Alkaline Phosphatase 81 IU/L (42-121) 04/30/21 21:45 Troponin I High Sens 5.9 ng/L (2.3-14.8) 04/30/21 23:35 Total Protein 7.0 g/dL (6.7-8.2) 04/30/21 21:45 Albumin 3.4 g/dL (3.2-5.5) 04/30/21 21:45 Globulin 3.6 g/dL (2.1-4.2) 04/30/21 21:45 Albumin/Globulin Ratio 0.9 (1.0-2.2) L 04/30/21 21:45 - Procedures Procedures: Procedures EXCISION OF LEFT KNEE JOINT, PERC ENDO APPROACH (07/21/16) EXCISION OF LEFT LOWER LEG TENDON, OPEN APPROACH (03/15/16) EXCISION OF RIGHT KNEE JOINT, PERC ENDO APPROACH (07/16/15) EXTIRPATION OF MATTER FROM L KNEE JT, PERC ENDO APPROACH (07/21/16) REPAIR LEFT KNEE JOINT, PERCUTANEOUS ENDOSCOPIC APPROACH (07/21/16) SUPPLEMENT LEFT ANKLE TENDON WITH SYNTH SUB, OPEN APPROACH (03/15/16) Sepsis Event Note (H) - Evaluation Current Stage of Sepsis: Ruled out ABX Reporting Has patient been on IV antibiotics over the past 48 hours?: No Current Medications - Current Medications Current Medications: Active Medications Acetaminophen (Acetaminophen 325 Mg Tablet) 650 mg PO Q4HR PRN PRN Reason: Pain 1 to 4 Last Admin: 05/04/21 21:56 Dose: 650 mg Dexamethasone (Dexamethasone 4 Mg Tablet) 6 mg PO DAILYWM [facility] Stop: 05/09/21 08:01 Enoxaparin Sodium (Enoxaparin 40 Mg/0.4 Ml Syringe) 40 mg SUBQ DAILY [facility] Last Admin: 05/05/21 08:58 Dose: 40 mg Guaifenesin/Codeine Phosphate (Guaifenesin/Codeine 5 Ml Udc) 5 ml PO Q6HR PRN PRN Reason: Cough Last Admin: 05/05/21 08:57 Dose: 5 ml Insulin Aspart (Insulin Aspart 300 Unit/3 Ml Pen) 3 - 11 unit SUBQ 0800,1200,1700,2100 [facility]; Protocol Last Admin: 05/05/21 12:09 Dose: 5 unit Insulin Aspart (Insulin Aspart 300 Unit/3 Ml Pen) 6 unit SUBQ TIDWM [facility] Last Admin: 05/05/21 12:11 Dose: 6 unit Insulin Glargine (Insulin Glargine 300 Unit/3 Ml Pen) 20 unit SUBQ QDBREAKFAST [facility] Last Admin: 05/05/21 08:59 Dose: 20 unit Ketorolac Tromethamine (Ketorolac 15 Mg/Ml Vial) 15 mg IVP Q6HR PRN PRN Reason: PAIN Stop: 05/06/21 22:18 Last Admin: 05/05/21 10:00 Dose: 15 mg Pantoprazole Sodium (Pantoprazole 40 Mg Tablet) 40 mg PO QDAC [facility] Prochlorperazine Edisylate (Prochlorperazine 10 Mg/2 Ml Vial) 10 mg IVP Q6HR PRN PRN Reason: Nausea / Vomiting Sodium Chloride (Sodium Chloride Flush 0.9% 10 Ml Syringe) 10 ml IVP PRN PRN PRN Reason: NEEDED PER PROVIDER ORDERS Last Admin: 05/03/21 21:13 Dose: 10 ml Sodium Chloride (Sodium Chloride Flush 0.9% 10 Ml Syringe) 10 ml IVP 0 100,0900,1700 [facility] Last Admin: 05/05/21 09:01 Dose: 10 ml Sucralfate (Sucralfate 1 Gm/10 Ml Udc) 1 gm PO QID [facility] Last Admin: 05/05/21 12:09 Dose: 1 gm Trazodone HCl (Trazodone 50 Mg Tablet) 50 mg PO HS PRN PRN Reason: NEEDED PER PROVIDER ORDERS Last Admin: 05/04/21 23:05 Dose: 50 mg Venlafaxine HCl (Venlafaxine Er 37.5 Mg Capsule) 37.5 mg PO DAILY [facility] Last Admin: 05/05/21 09:01 Dose: 37.5 mg Trazodone HCl 50 mg PO HS PRN 12/31/12 Omeprazole [PriLOSEC] 20 mg PO DAILY 01/12/14 Cetirizine [ZyrTEC] 10 mg PO DAILY PRN 07/18/16 Sucralfate [Carafate] 1 gm PO QID 05/02/21 Venlafaxine ER [Effexor ER] 37.5 mg PO DAILY 05/02/21
[2021-05-05] MEDS ORDERED: INSULIN ASPART 300 UNIT/3 ML PEN SUBQ ONE ×2 (18:05)
[2021-05-05] MEDS: traZODone 50 MG TABLET PO PRN (21:37)
[2021-05-06] MEDS: SODIUM CHLORIDE FLUSH 0.9% 10 ML SYRINGE IVP SCH ×3 (00:31→17:04)
[2021-05-06] MEDS: SODIUM CHLORIDE FLUSH 0.9% 10 ML SYRINGE IVP PRN (05:21)
[2021-05-06] MEDS: KETOROLAC 15 MG/ML VIAL IVP PRN ×2 (05:21→17:00)
[2021-05-06 05:50] LABS: BASOPHILS % (AUTO) 0.1 %; EOSINOPHILS % (AUTO) 0.1 %; HCT - HEMATOCRIT 37.9 % (37.0-47.0); HGB - HEMOGLOBIN 12.7 g/dL (12.0-16.0); LYMPHOCYTES # (AUTO) 0.8 10^3/uL (1.5-3.5); LYMPHOCYTES % (AUTO) 12.2 %; MEAN CORPUSCULAR HGB CONC 33.5 g/dL (32.0-36.0); MEAN CORPUSCULAR VOLUME 83.7 fL (81.0-99.0); MEAN PLATELET VOLUME 9.9 fL (7.9-10.8); MONOCYTES # (AUTO) 0.4 10^3/uL (0.0-1.0); MONOCYTES % (AUTO) 6.3 %; NEUTROPHILS # (AUTO) 5.5 10^3/uL (1.5-6.6); PLT - PLATELET COUNT 293 10^3/uL (130-450); RED BLOOD COUNT 4.53 10^6/uL (4.20-5.40); RED CELL DISTRIBUTION WIDTH 13.2 % (12.0-15.0); WHITE BLOOD COUNT 6.9 x10^3/uL (4.8-10.8)
[2021-05-06 05:58] LABS: CALCIUM 8.3 mg/dL (8.5-10.3); CREATININE 0.6 mg/dL (0.4-1.0); POTASSIUM 3.6 mmol/L (3.5-5.0)
[2021-05-06] MEDS: PANTOPRAZOLE 40 MG TABLET PO SCH (07:36)
[2021-05-06] MEDS ORDERED: SODIUM CHLORIDE 0.9% 1,000 ML IV SCH (08:00)
[2021-05-06] MEDS ORDERED: INSULIN GLARGINE 300 UNIT/3 ML PEN SUBQ SCH (08:00)
[2021-05-06] MEDS: dexAMETHasone 4 MG TABLET PO SCH (08:20)
[2021-05-06] MEDS: VENLAFAXINE ER 37.5 MG CAPSULE PO SCH (08:21)
[2021-05-06] MEDS: SUCRALFATE 1 GM/10 ML UDC PO SCH ×4 (08:21→21:49)
[2021-05-06] MEDS: INSULIN ASPART 300 UNIT/3 ML PEN SUBQ SCH ×7 (08:22→21:45)
[2021-05-06] MEDS: ENOXAPARIN 40 MG/0.4 ML SYRINGE SUBQ SCH (08:23)
[2021-05-06] MEDS: INSULIN GLARGINE 300 UNIT/3 ML PEN SUBQ SCH (08:23)
[2021-05-06] MEDS: guaiFENesin/CODEINE 5 ML UDC PO PRN ×2 (08:41→21:47)
--- NOTE | 2021-05-06 12:28 | PROVIDER PROGRESS NOTE ---
Assessment/Plan - Problem List (1) Acute respiratory failure with hypoxia Assessment/Plan: 05/06 pt still has 79% O2 sat on 3 liter of O2 when she is on exertion. but she has no acute respiratory distress with 92% O2 sat on 3 liter of O2. Discussed the care plan with RT. pt declined to have prone position, educate and explain to pt for the importance for prone position, hope pt do prone position 05/05 pt feel better and had good sleep on last night, but pt still has 92% on 3 liter of O2 at rest. continue covid 19 treatment course, continue supplement of O2 as needed. plan to have O2 desat on tomorrow to see if pt can be d/c with home O2 05/04 pt anxiously want to go to home but we did O2 desat study, on 4 liter of O2 with exertion, pt only had 88% O2 sat. she had 95% sat with 3 liter of O2 at the rest shown at vital sign. pt agree to stay at hospital now. continue covid 19 treatment course, continue supplement of O2 as needed. pt need high flow O2 on today. pt did not present acute respiratory distress continue Decadron Day 06/08, Remdesivir Day 2/5 Lovenox for DVT prophylaxis, supplement of O2 as needed (2) COVID-19 05/06 slowly recovery, continue finish Covid treatment, continue supplement of O2 as needed. 05/04 improved. pt had 95% O2 sat on 3 liter of O2 at rest. continue covid 19 treatment, supplement of O2 as needed. need high flow of O2 on today Decadron Day 2/9, Remdesivir Day 2/5 Lovenox for DVT prophylaxis (3) Diabetes mellitus pt is new diagnosis of diabetes, her HgA1C 7.7, pt also is on Steroid for Covid 19 treatment On lantus 20 units qpm, slide scale and increase schedule insulin tid, continue hypoglycemia protocol. Accu checks qAC and HS, SSI - Current Meds Current Meds: Current Medications Generic Name Dose Route Start Last Admin Trade Name Freq PRN Reason Stop Dose Admin Acetaminophen 650 mg 04/30/21 20:07 05/04/21 21:56 Acetaminophen 325 Mg Tablet PO 650 mg Q4HR PRN Administration Pain 1 to 4 Dexamethasone 6 mg 05/06/21 08:00 05/06/21 08:20 Dexamethasone 4 Mg Tablet PO 05/09/21 08:01 6 mg DAILYWM FIORDALIZA Administration Enoxaparin Sodium 40 mg 05/01/21 09:00 05/06/21 08:23 Enoxaparin 40 Mg/0.4 Ml Syringe SUBQ 40 mg DAILY FIORDALIZA Administration Guaifenesin/Codeine Phosphate 5 ml 05/02/21 17:38 05/06/21 08:41 Guaifenesin/Codeine 5 Ml Udc PO 5 ml Q6HR PRN Administration Cough Sodium Chloride 1,000 mls @ 100 mls/hr 05/06/21 08:00 05/06/21 08:26 Normal Saline 0.9% IV 05/07/21 03:59 100 mls/hr .Q10H FIORDALIZA Administration Insulin Aspart 3 - 11 unit 05/02/21 21:00 05/06/21 12:00 Insulin Aspart 300 Unit/3 Ml Pen SUBQ 7 unit 0800,1200,1700,2100 FIORDALIZA Administration Protocol Insulin Aspart 6 unit 05/04/21 17:00 05/06/21 12:00 Insulin Aspart 300 Unit/3 Ml Pen SUBQ 6 unit TIDWM FIORDALIZA Administration Insulin Glargine 20 unit 05/03/21 08:00 05/06/21 08:23 Insulin Glargine 300 Unit/3 Ml Pen SUBQ 20 unit QDBREAKFAST FIORDAILZA Administration Ketorolac Tromethamine 15 mg 05/01/21 22:19 05/06/21 05:21 Ketorolac 15 Mg/Ml Vial IVP 05/06/21 22:18 15 mg Q6HR PRN Administration PAIN Pantoprazole Sodium 40 mg 05/06/21 07:00 05/06/21 07:36 Pantoprazole 40 Mg Tablet PO 40 mg QDAC FIORDALIZA Administration Sodium Chloride 10 ml 04/30/21 20:07 05/06/21 05:21 Sodium Chloride Flush 0.9% 10 Ml Syringe IVP 10 ml PRN PRN Administration NEEDED PER PROVIDER ORDERS Sodium Chloride 10 ml 05/01/21 01:00 05/06/21 08:26 Sodium Chloride Flush 0.9% 10 Ml Syringe IVP 10 ml 0100,0900,1700 FIORDALIZA Administration Sucralfate 1 gm 05/04/21 17:00 05/06/21 08:21 Sucralfate 1 Gm/10 Ml Udc PO 1 gm QID FIORDALIZA Administration Trazodone HCl 50 mg 05/01/21 22:18 05/05/21 21:37 Trazodone 50 Mg Tablet PO 50 mg HS PRN Administration NEEDED PER PROVIDER ORDERS Venlafaxine HCl 37.5 mg 05/04/21 14:27 05/06/21 08:21 Venlafaxine Er 37.5 Mg Capsule PO 37.5 mg DAILY FIORDALIZA Administration - Lab Result Fish Bone Diagrams: 05/06/21 04:54 05/06/21 04:54 - Additional Planning My Orders: My Active Orders 05/06/21 08:00 Sodium Chloride 0.9% [Normal Saline 0.9%] 1,000 ml IV 100 mls/hr Subjective - Subjective Patient Reports: Resting Comfortably, Other (shortness of breath at exertion even with O2 supplement) Objective Vital Signs: Vital Signs - 24 hr 05/05/21 05/05/21 05/05/21 13:00 17:00 21:00 Temperature 36.6 C 36.7 C 36.7 C Heart Rate [ 70 52 L 52 L Brachial] Respiratory 18 20 20 Rate Blood Pressure 105/51 L 113/65 126/60 [Right Brachial artery] O2 Saturation 92 96 95 05/06/21 05/06/21 05/06/21 02:30 05:00 07:43 Temperature 36.5 C 36.4 C L 36.6 C Heart Rate [ 53 L 55 L 56 L Brachial] Respiratory 18 17 16 Rate Blood Pressure 113/70 105/51 L 114/65 [Right Brachial artery] O2 Saturation 92 91 L 93 05/06/21 11:27 Temperature 36.5 C Heart Rate [ 62 Brachial] Respiratory 18 Rate Blood Pressure 105/52 L [Right Brachial artery] O2 Saturation 92 Oxygen O2 Source Nasal cannula Oxygen Flow Rate 3 I&O (Last 24 Hrs): Intake and Output Totals x24h 05/04/21 05/05/21 05/06/21 23:59 23:59 23:59 Intake Total 2550 2080 250 Balance 2550 2080 250 General: Alert, Oriented x3, Cooperative, No acute distress HEENT: Atraumatic, PERRLA Neck: Supple Lymphatic: no adenopathy Neuro: Alert, Non Focal, Oriented Times 3 Cardiovascular: Regular rate, Normal S1, Normal S2 Respiratory: Chest non-tender, No respiratory distress Abdomen: Normal bowel sounds, Soft Extremities: Normal pulses - Results Results: Laboratory Results WBC 6.9 x10^3/uL (4.8-10.8) 05/06/21 04:54 RBC 4.53 10^6/uL (4.20-5.40) 05/06/21 04:54 Hgb 12.7 g/dL (12.0-16.0) 05/06/21 04:54 Hct 37.9 % (37.0-47.0) 05/06/21 04:54 MCV 83.7 fL (81.0-99.0) 05/06/21 04:54 MCH 28.0 pg (27.0-31.0) 05/06/21 04:54 MCHC 33.5 g/dL (32.0-36.0) 05/06/21 04:54 RDW 13.2 % (12.0-15.0) 05/06/21 04:54 Plt Count 293 10^3/uL (130-450) 05/06/21 04:54 MPV 9.9 fL (7.9-10.8) 05/06/21 04:54 Neut # (Auto) 5.5 10^3/uL (1.5-6.6) 05/06/21 04:54 Lymph # (Auto) 0.8 10^3/uL (1.5-3.5) L 05/06/21 04:54 [place] # (Auto) 0.4 10^3/uL (0.0-1.0) 05/06/21 04:54 Eos # (Auto) 0.0 10^3/uL (0.0-0.7) 05/06/21 04:54 Baso # (Auto) 0.0 10^3/uL (0.0-0.1) 05/06/21 04:54 Absolute Nucleated RBC 0.00 x10^3/uL 05/06/21 04:54 Band Neuts % (Manual) Not Reportable 05/01/21 04:41 Abnorm Lymph % (Manual) Not Reportable 05/01/21 04:41 Nucleated RBC % 0.0 /100WBC 05/06/21 04:54 Neutrophils # (Manual) Not Reportable 05/01/21 04:41 Lymphocytes # (Manual) Not Reportable 05/01/21 04:41 Monocytes # (Manual) Not Reportable 05/01/21 04:41 Eosinophils # (Manual) Not Reportable 05/01/21 04:41 Basophils # (Manual) Not Reportable 05/01/21 04:41 Differential Comment MANUAL=AUTO DIFF 05/01/21 04:41 Platelet Estimate NORMAL (130-450,000) (NORMAL) 05/01/21 04:41 Platelet Morphology NORMAL APPEARANCE (NORMAL) 05/01/21 04:41 RBC Morph Micro Appear NORMAL APPEARANCE (NORMAL) 05/01/21 04:41 D-Dimer > 1050.0 ng/mL (200.0-255.0) H 04/30/21 22:18 Sodium 139 mmol/L (135-145) 05/06/21 04:54 Potassium 3.6 mmol/L (3.5-5.0) 05/06/21 04:54 Chloride 105 mmol/L (101-111) 05/06/21 04:54 Carbon Dioxide 22 mmol/L (21-32) 05/06/21 04:54 Anion Gap 12.0 (6-13) 05/06/21 04:54 BUN 26 mg/dL (6-20) H 05/06/21 04:54 Creatinine 0.6 mg/dL (0.4-1.0) 05/06/21 04:54 Estimated GFR (MDRD) 105 (>89) 05/06/21 04:54 Glucose 243 mg/dL (70-100) H 05/06/21 04:54 POC Whole Bld Glucose 236 mg/dL (70 - 100) H 05/06/21 11:20 Estimat Average Glucose 174 mg/dL (70-100) H 05/01/21 04:41 Hemoglobin A1c % 7.7 % (4.27-6.07) H 05/01/21 04:41 Calcium 8.3 mg/dL (8.5-10.3) L 05/06/21 04:54 Phosphorus 3.4 mg/dL (2.5-4.6) 04/30/21 21:45 Magnesium 2.0 mg/dL (1.7-2.8) 05/06/21 04:54 Total Bilirubin 0.7 mg/dL (0.2-1.0) 04/30/21 21:45 AST 20 IU/L (10-42) 04/30/21 21:45 ALT 17 IU/L (10-60) 04/30/21 21:45 Alkaline Phosphatase 81 IU/L (42-121) 04/30/21 21:45 Troponin I High Sens 5.9 ng/L (2.3-14.8) 04/30/21 23:35 Total Protein 7.0 g/dL (6.7-8.2) 04/30/21 21:45 Albumin 3.4 g/dL (3.2-5.5) 04/30/21 21:45 Globulin 3.6 g/dL (2.1-4.2) 04/30/21 21:45 Albumin/Globulin Ratio 0.9 (1.0-2.2) L 04/30/21 21:45 - Procedures Procedures: Procedures EXCISION OF LEFT KNEE JOINT, PERC ENDO APPROACH (07/21/16) EXCISION OF LEFT LOWER LEG TENDON, OPEN APPROACH (03/15/16) EXCISION OF RIGHT KNEE JOINT, PERC ENDO APPROACH (07/16/15) EXTIRPATION OF MATTER FROM L KNEE JT, PERC ENDO APPROACH (07/21/16) REPAIR LEFT KNEE JOINT, PERCUTANEOUS ENDOSCOPIC APPROACH (07/21/16) SUPPLEMENT LEFT ANKLE TENDON WITH SYNTH SUB, OPEN APPROACH (03/15/16) Sepsis Event Note (H) - Evaluation Current Stage of Sepsis: Ruled out ABX Reporting Has patient been on IV antibiotics over the past 48 hours?: No Current Medications - Current Medications Current Medications: Active Medications Acetaminophen (Acetaminophen 325 Mg Tablet) 650 mg PO Q4HR PRN PRN Reason: Pain 1 to 4 Last Admin: 05/04/21 21:56 Dose: 650 mg Dexamethasone (Dexamethasone 4 Mg Tablet) 6 mg PO DAILYWM [facility] Stop: 05/09/21 08:01 Last Admin: 05/06/21 08:20 Dose: 6 mg Enoxaparin Sodium (Enoxaparin 40 Mg/0.4 Ml Syringe) 40 mg SUBQ DAILY [facility] Last Admin: 05/06/21 08:23 Dose: 40 mg Guaifenesin/Codeine Phosphate (Guaifenesin/Codeine 5 Ml Udc) 5 ml PO Q6HR PRN PRN Reason: Cough Last Admin: 05/06/21 08:41 Dose: 5 ml Sodium Chloride (Normal Saline 0.9%) 1,000 mls @ 100 mls/hr IV .Q10H [facility] Stop: 05/07/21 03:59 Last Admin: 05/06/21 08:26 Dose: 100 mls/hr Insulin Aspart (Insulin Aspart 300 Unit/3 Ml Pen) 3 - 11 unit SUBQ 0800,1200,1700,2100 [facility]; Protocol Last Admin: 05/06/21 12:00 Dose: 7 unit Insulin Aspart (Insulin Aspart 300 Unit/3 Ml Pen) 6 unit SUBQ TIDWM [facility] Last Admin: 05/06/21 12:00 Dose: 6 unit Insulin Glargine (Insulin Glargine 300 Unit/3 Ml Pen) 20 unit SUBQ QDBREAKFAST [facility] Last Admin: 05/06/21 08:23 Dose: 20 unit Ketorolac Tromethamine (Ketorolac 15 Mg/Ml Vial) 15 mg IVP Q6HR PRN PRN Reason: PAIN Stop: 05/06/21 22:18 Last Admin: 05/06/21 05:21 Dose: 15 mg Pantoprazole Sodium (Pantoprazole 40 Mg Tablet) 40 mg PO QDAC [facility] Last Admin: 05/06/21 07:36 Dose: 40 mg Prochlorperazine Edisylate (Prochlorperazine 10 Mg/2 Ml Vial) 10 mg IVP Q6HR PRN PRN Reason: Nausea / Vomiting Sodium Chloride (Sodium Chloride Flush 0.9% 10 Ml Syringe) 10 ml IVP PRN PRN PRN Reason: NEEDED PER PROVIDER ORDERS Last Admin: 05/06/21 05:21 Dose: 10 ml Sodium Chloride (Sodium Chloride Flush 0.9% 10 Ml Syringe) 10 ml IVP 0100,0900,1700 [facility] Last Admin: 05/06/21 08:26 Dose: 10 ml Sucralfate (Sucralfate 1 Gm/10 Ml Udc) 1 gm PO QID [facility] Last Admin: 05/06/21 08:21 Dose: 1 gm Trazodone HCl (Trazodone 50 Mg Tablet) 50 mg PO HS PRN PRN Reason: NEEDED PER PROVIDER ORDERS Last Admin: 05/05/21 21:37 Dose: 50 mg Venlafaxine HCl (Venlafaxine Er 37.5 Mg Capsule) 37.5 mg PO DAILY [facility] Last Admin: 05/06/21 08:21 Dose: 37.5 mg Trazodone HCl 50 mg PO HS PRN 12/31/12 Omeprazole [PriLOSEC] 20 mg PO DAILY 01/12/14 Cetirizine [ZyrTEC] 10 mg PO DAILY PRN 07/18/16 Sucralfate [Carafate] 1 gm PO QID 05/02/21 Venlafaxine ER [Effexor ER] 37.5 mg PO DAILY 05/02/21
[2021-05-06] MEDS: ACETAMINOPHEN 325 MG TABLET PO PRN (21:46)
[2021-05-06] MEDS: traZODone 50 MG TABLET PO PRN (21:46)
[2021-05-06] MEDS ORDERED: INSULIN ASPART 300 UNIT/3 ML PEN SUBQ ONE ×2 (22:54)
[2021-05-07] MEDS: SODIUM CHLORIDE FLUSH 0.9% 10 ML SYRINGE IVP SCH ×3 (02:59→17:23)
[2021-05-07] MEDS: guaiFENesin/CODEINE 5 ML UDC PO PRN ×2 (03:51→15:56)
[2021-05-07] MEDS: ACETAMINOPHEN 325 MG TABLET PO PRN (03:52)
[2021-05-07 05:30] LABS: CALCIUM 8.4 mg/dL (8.5-10.3); CREATININE 0.5 mg/dL (0.4-1.0); MAGNESIUM 2.1 mg/dL (1.7-2.8); POTASSIUM 3.7 mmol/L (3.5-5.0)
[2021-05-07 05:58] LABS: BASOPHILS % (AUTO) 0.1 %; EOSINOPHILS % (AUTO) 0.3 %; HCT - HEMATOCRIT 37.6 % (37.0-47.0); HGB - HEMOGLOBIN 12.8 g/dL (12.0-16.0); LYMPHOCYTES # (AUTO) 1.2 10^3/uL (1.5-3.5); LYMPHOCYTES % (AUTO) 15.6 %; MEAN CORPUSCULAR HEMOGLOBIN 28.5 pg (27.0-31.0); MEAN CORPUSCULAR VOLUME 83.7 fL (81.0-99.0); MEAN PLATELET VOLUME 9.4 fL (7.9-10.8); MONOCYTES # (AUTO) 0.5 10^3/uL (0.0-1.0); MONOCYTES % (AUTO) 6.9 %; NEUTROPHILS # (AUTO) 5.6 10^3/uL (1.5-6.6); NEUTROPHILS % (AUTO) 75.3 %; PLT - PLATELET COUNT 313 10^3/uL (130-450); RED BLOOD COUNT 4.49 10^6/uL (4.20-5.40); RED CELL DISTRIBUTION WIDTH 13.2 % (12.0-15.0); WHITE BLOOD COUNT 7.4 x10^3/uL (4.8-10.8)
[2021-05-07] MEDS: PANTOPRAZOLE 40 MG TABLET PO SCH (06:52)
[2021-05-07] MEDS: VENLAFAXINE ER 37.5 MG CAPSULE PO SCH (09:32)
[2021-05-07] MEDS: dexAMETHasone 4 MG TABLET PO SCH (09:32)
[2021-05-07] MEDS: SUCRALFATE 1 GM/10 ML UDC PO SCH ×4 (09:33→22:04)
[2021-05-07] MEDS: INSULIN ASPART 300 UNIT/3 ML PEN SUBQ SCH ×7 (09:34→22:04)
[2021-05-07] MEDS: INSULIN GLARGINE 300 UNIT/3 ML PEN SUBQ SCH (09:36)
[2021-05-07] MEDS: ENOXAPARIN 40 MG/0.4 ML SYRINGE SUBQ SCH (09:36)
--- NOTE | 2021-05-07 14:00 | PROVIDER PROGRESS NOTE ---
Subjective - Prog Note Date Prog Note Date: 05/07/21 - Subjective Pt reports feeling: No change Subjective: Reports she is feeling okay and wondering about her ambulatory oxygen saturations today. Her only complaint is back pain, which is chronic for her and related to her fibromyalgia. She has been ambulating around the room, stretching and changing positions in the bed but having difficulty getting comfortable. She is wondering why the Toradol was stopped and requesting something to help with the pain. Has no other complaints today. Objective - Vital Signs/Intake & Output Reviewed Vital Signs: Yes Vital Signs: Vital Signs x48h Pulse Resp BP Pulse Ox 05/07/21 09:00 65 20 97/53 L 94 Intake & Output: Intake & Output 05/04/21 05/05/21 05/06/21 05/07/21 23:59 23:59 23:59 23:59 Intake Total 2550 2080 2308 240 Balance 2550 2080 2308 240 - Objective General Appearance: positive: No acute distress, Alert Eyes Bilateral: positive: Normal inspection ENT: positive: ENT inspection nml Neck: positive: Nml inspection Respiratory: positive: Chest non-tender, No respiratory distress, Other (Slightly diminished in the bases, dry cough) Cardiovascular: positive: Regular rate & rhythm Abdomen: positive: Non-tender, Nml bowel sounds, No distention Skin: positive: Color nml Extremities: positive: Non-tender, Full ROM, Nml appearance - Lab Results Fish Bones: 05/07/21 05:40 05/07/21 04:49 Other Labs: Lab Results x24hrs 05/07/21 05/07/21 05/07/21 Range/Units 12:15 08:12 05:40 WBC 7.4 (4.8-10.8) x10^3/uL RBC 4.49 (4.20-5.40) 10^6/uL Hgb 12.8 (12.0-16.0) g/dL Hct 37.6 (37.0-47.0) % MCV 83.7 (81.0-99.0) fL MCH 28.5 (27.0-31.0) pg MCHC 34.0 (32.0-36.0) g/dL RDW 13.2 (12.0-15.0) % Plt Count 313 (130-450) 10^3/uL MPV 9.4 (7.9-10.8) fL Neut # (Auto) 5.6 (1.5-6.6) 10^3/uL Lymph # (Auto) 1.2 L (1.5-3.5) 10^3/uL [place] # (Auto) 0.5 (0.0-1.0) 10^3/uL Eos # (Auto) 0.0 (0.0-0.7) 10^3/uL Baso # (Auto) 0.0 (0.0-0.1) 10^3/uL Absolute Nucleated RBC 0.00 x10^3/uL Nucleated RBC % 0.0 /100WBC Sodium (135-145) mmol/L Potassium (3.5-5.0) mmol/L Chloride (101-111) mmol/L Carbon Dioxide (21-32) mmol/L Anion Gap (6-13) BUN (6-20) mg/dL Creatinine (0.4-1.0) mg/dL Estimated GFR (MDRD) (>89) Glucose (70-100) mg/dL POC Whole Bld Glucose 184 H 101 H (70 - 100) mg/dL Calcium (8.5-10.3) mg/dL Magnesium (1.7-2.8) mg/dL 05/07/21 05/06/21 05/06/21 Range/Units 04:49 23:00 20:41 WBC (4.8-10.8) x10^3/uL RBC (4.20-5.40) 10^6/uL Hgb (12.0-16.0) g/dL Hct (37.0-47.0) % MCV (81.0-99.0) fL MCH (27.0-31.0) pg MCHC (32.0-36.0) g/dL RDW (12.0-15.0) % Plt Count (130-450) 10^3/uL MPV (7.9-10.8) fL Neut # (Auto) (1.5-6.6) 10^3/uL Lymph # (Auto) (1.5-3.5) 10^3/uL [place] # (Auto) (0.0-1.0) 10^3/uL Eos # (Auto) (0.0-0.7) 10^3/uL Baso # (Auto) (0.0-0.1) 10^3/uL Absolute Nucleated RBC x10^3/uL Nucleated RBC % /100WBC Sodium 138 (135-145) mmol/L Potassium 3.7 (3.5-5.0) mmol/L Chloride 106 (101-111) mmol/L Carbon Dioxide 23 (21-32) mmol/L Anion Gap 9.0 (6-13) BUN 26 H (6-20) mg/dL Creatinine 0.5 (0.4-1.0) mg/dL Estimated GFR (MDRD) 130 (>89) Glucose 140 H (70-100) mg/dL POC Whole Bld Glucose 299 H 346 H (70 - 100) mg/dL Calcium 8.4 L (8.5-10.3) mg/dL Magnesium 2.1 (1.7-2.8) mg/dL 05/06/21 Range/Units 16:48 WBC (4.8-10.8) x10^3/uL RBC (4.20-5.40) 10^6/uL Hgb (12.0-16.0) g/dL Hct (37.0-47.0) % MCV (81.0-99.0) fL MCH (27.0-31.0) pg MCHC (32.0-36.0) g/dL RDW (12.0-15.0) % Plt Count (130-450) 10^3/uL MPV (7.9-10.8) fL Neut # (Auto) (1.5-6.6) 10^3/uL Lymph # (Auto) (1.5-3.5) 10^3/uL [place] # (Auto) (0.0-1.0) 10^3/uL Eos # (Auto) (0.0-0.7) 10^3/uL Baso # (Auto) (0.0-0.1) 10^3/uL Absolute Nucleated RBC x10^3/uL Nucleated RBC % /100WBC Sodium (135-145) mmol/L Potassium (3.5-5.0) mmol/L Chloride (101-111) mmol/L Carbon Dioxide (21-32) mmol/L Anion Gap (6-13) BUN (6-20) mg/dL Creatinine (0.4-1.0) mg/dL Estimated GFR (MDRD) (>89) Glucose (70-100) mg/dL POC Whole Bld Glucose 363 H (70 - 100) mg/dL Calcium (8.5-10.3) mg/dL Magnesium (1.7-2.8) mg/dL Sepsis Event Note (H) - Evaluation Current Stage of Sepsis: Ruled out Assessment/Plan - Problem List (1) Acute respiratory failure with hypoxia Impression: Stable. On ambulatory sat check yesterday she desaturated to 79% while ambulating on 3L. Has not been out of bed for another check yet today. Denying feeling short of breath but still requiring 3L NC, satting around 94%. She has not required high flow oxygen today. Per the MAR she received her 2nd of 4 doses of Decadron today. She has completed treatment with Remdesivir. -Decadron x4 doses, day 2 of 4 today -Supplemental oxygen as needed -Ambulatory sat test when RT available today -Lovenox for DVT prophylaxis (2) COVID-19 Impression: Stable. She is slowly recovering, continues to require supplemental oxygen but does not feel short of breath. Ambulatory sats were low yesterday. She is receiving another round of Decadron and took her 2nd of 4 doses today. -Lovenox for DVT prophylaxis -Decadron -Supplemental O2 when needed (3) Diabetes Impression: Stable. Newly diagnosed with diabetes this admission, HgA1C 7.7. Blood sugars yesterday were 299-363 but she has been 101-184 today after yesterday's insulin adjustments. She is receiving steroids for her covid treatment so her blood sugars are likely affected by this. Currently she is on Lantus 20units with breakfast with sliding scale. -Continue BG checks QAC and HS with SSI -Lantus 20units with breakfast -Novolog 10units subq with meals in addition to SSI -Continue diabetes education Qualifiers: Diabetes mellitus type: type 2 Diabetes mellitus terminal operator insulin use: without retirement use Diabetes mellitus complication status: without complication Qualified Code(s): E11.9 - Type 2 diabetes mellitus without complications (4) History of fibromyalgia Impression: Pt reports she has Fibromyalgia which causes chronic back pain, for which she occasionally takes Tylenol 3s at home. She has been receiving IV Toradol with good relief here but this was stopped after 5 days. She has taken Cle[place] in the past, and this was resumed today to see if it helps. She is also trying to stretch, ambulate and change positions in the bed to see if this helps.
[2021-05-07] MEDS: HYDROcod/ACETAM 5/325 MG TABLET PO PRN ×2 (15:51→22:04)
[2021-05-07] MEDS: traZODone 50 MG TABLET PO PRN (22:04)
[2021-05-08] MEDS: SODIUM CHLORIDE FLUSH 0.9% 10 ML SYRINGE IVP SCH ×2 (00:53→08:11)
[2021-05-08] MEDS: PANTOPRAZOLE 40 MG TABLET PO SCH (06:58)
[2021-05-08] MEDS: HYDROcod/ACETAM 5/325 MG TABLET PO PRN ×2 (06:58→12:05)
[2021-05-08] MEDS: SUCRALFATE 1 GM/10 ML UDC PO SCH ×2 (08:07→12:05)
[2021-05-08] MEDS: dexAMETHasone 4 MG TABLET PO SCH (08:09)
[2021-05-08] MEDS: INSULIN ASPART 300 UNIT/3 ML PEN SUBQ SCH ×4 (08:09→11:42)
[2021-05-08] MEDS: INSULIN GLARGINE 300 UNIT/3 ML PEN SUBQ SCH (08:10)
[2021-05-08] MEDS: ENOXAPARIN 40 MG/0.4 ML SYRINGE SUBQ SCH (08:10)
[2021-05-08] MEDS: VENLAFAXINE ER 37.5 MG CAPSULE PO SCH (08:11)
[2021-05-08] MEDS ORDERED: MAGIC MOUTHWASH (NYSTATIN) 120 ML BOTTLE PO PRN (11:11)
--- NOTE | 2021-05-08 13:41 | Discharge Plan ---
Discharge Plan Problem Reviewed?: Yes Disposition: Home, Self Care Condition: Stable Prescriptions: Blood-Glucose Meter [Glucometer] 1 each MC DAILY #1 each Blood Sugar Diagnostic [Glucometer Strips] 1 each MC TID #100 strip Lancets 1 each MC QID #120 each Insulin Glargine [Lantus Solostar] 25 unit SQ DAILY #3 syr methylPREDNISolone [Medrol Dose Pack] 1 each PO .PACKAGEINSTRUCTIONS 6 Days #1 each HYDROcod/ACETAM 5/325 [[place] 5/325] 1 - 2 tablet PO Q6H PRN #30 tablet PRN Reason: Pain Insulin Regular, Human [Novolin R Flexpen] 10 unit SQ TIDWM #10 syr Pen Needle, Diabetic [Pen Needle] 1 each MC QID #120 ndl Diet: Diabetic Activity Restrictions: Activity as Tolerated Driving Restrictions: Yes (No driving while taking [place]) Instruction Topics: COVID-19 [facility], COVID-19 [facility] Department Statement, Oxygen Home Use, Blood Sugar Check, Hyperglycemia, Hypoglycemia, Diabetes Healthy Meals, Insulin Injected Health Concerns: You were admitted with shortness of breath and low oxygen saturation after testing positive for COVID 19. You received full treatment for the COVID, including Decadron (steroids) and Remdesivir. You received additional doses of Decadron given your continued need for oxygen and will go home with a steroid taper. Your oxygen needs have slowly decreased and per respiratory therapy you do not need it at rest, though you should check your saturations periodically with the oxygen sat probe you ordered and report is waiting for you at home. Additionally, you still require 6L of oxygen when moving around at home. Please make sure that if you are feeling tired that you rest and if you are feeling short of breath that you check your oxygen and use the supplemental oxygen as needed. It may be a few more weeks before you feel back to normal. Additionally, per [place] and [facility] guidelines you have met your isolation time requirement and do not need to isolate at home. Please wear a mask when you are out in public. If you choose to receive a COVID vaccine, please wait until all symptoms have resolved. Additionally, when you were admitted your hemoglobin A1C, which is used to determine if a person has diabetes, was elevated at 7.7. You have required high amounts of insulin, due both to the use of steroids for your COVID treatment and to the underlying diabetes. We have sent a prescription to your pharmacy for a glucometer, lancets, needles and test strips so that you can check your blood sugar at home before every meal and before you go to bed. If you notice your blood sugar is low or borderline before going to bed, please drink a small cup of juice or eat something and then set an alarm for the middle of the night to recheck it. I have included education above regarding signs and symptoms of high and low blood sugar and how to treat each. We have additionally sent a prescription for insulin to the pharmacy. You will take 10 units of short acting Novalog before eating each meal (after taking your blood sugar). Once you have finished your steroid taper over the next week you may find that your blood sugars are closer to normal and may cut the dose of Novalog in half or disregard it as long as the next blood sugar is similarly closer to normal. We have also ordered 25 units of long acting insulin, Lantus, to be taken in the morning with breakfast. You did not receive much diabetic education while you were admitted but tell me you have taken the classes before. Please follow up with your PCP in 1-2 weeks and consider retaking the classes for more information. You report that you will soon be undergoing bariatric surgery and most likely will need to have your blood sugars under control prior to this occurring. Last, you started to report increased back pain related to your fibromyalgia after a few days of being in the hospital related to being unable to walk much due to oxygen requirements and infection control requirements as well as due to the discomfort you experienced with your bed. We have provided a prescription for [place] PRN, which you have taken before. Please take as prescribed and only as needed. Do not drink alcohol or drive while you are taking this medication. No refills were provided. Plan of Treatment: The plan is as stated above. Please follow up with your PCP in 1-2 weeks, especially if you have increased shortness of breath or difficulties managing your blood sugars. Care Goals: As above. Assessment: Pt was given the instructions and stated understanding as well as feeling comfortable discharging home. Additional Instructions or Follow Up instructions: As above. Follow up with your PCP in 1-2 weeks. Follow-Up Care: [facility] - Diabetes Ed (Please consider following up for further diabetic teaching and classes) No Smoking: If you smoke, Please STOP! Call for help.
--- NOTE | 2021-05-08 13:51 | DISCHARGE SUMMARY ---
Discharge Summary Admit Date: 04/30/21 Discharge Date: 05/08/21 Discharging Provider: Dana MUÑOZ Primary Care Provider: [facility] Code Status: Attempt Resuscitation Condition at Discharge: Stable Discharge Disposition: Home, Self Care - DIAGNOSES Admission Diagnoses: 1. Acute respiratory failure with hypoxia 2. Covid 19 pneumonia Discharge Diagnoses with Status of Each Condition: (1) Acute respiratory failure with hypoxia Impression: Stable. RT performed an ambulatory desat test today. O2 sats at rest, room air: 93%. O2 sats ambulating on room air: 80%. O2 sats ambulating on 2lpm: 82%, 3lpm 84%, and ifnally on 6 lpm ambulating, patient's O2 sats were 91%. I am ordering home O2, room air at rest, and 6 lpm with exertion to treat her Covid 19 pneumonia, and resulting hypoxemia. She has completed treatment with Remdesivir. She feels stable enough to return home today and will do so with a steroid taper and home O2. (2) COVID-19 Impression: Stable. She is slowly recovering, continues to require supplemental oxygen with ambulation but does not feel short of breath. Ambulatory sats were low yesterday. She has completed treatment with Decadron and Remdesivir and received additional doses of Decadron for 4 additional doses. I will send her home with a steroid taper given she has received 2 weeks of treatment. (3) Diabetes Impression: Stable. Newly diagnosed with diabetes this admission, HgA1C 7.7. Blood sugars have ranged from 100-332 in the past 24 hours. She is receiving steroids for her covid treatment so her blood sugars are likely affected by this. She will be sent home with Lantus 25units at breakfast with an additional 10units Novalog with meals and blood sugar checks qac/hs. Due to staffing issues she did not receive much diabetic education this admission. She reports she has taken the education classes previously as she has always been borderline and did have gestational diabetes. She believes she will be able to perform her BG checks independently but has help from family at home who also have DM2 should she need it. She was instructed to follow up with her PCP in 2 weeks to ensure she has adequate insulin coverage. I also instructed her to cut the Novalog dose in half or stop it if her BG with meals is normal or borderline high once she has completed the steroid taper. I also encouraged her to attend the diabetic education classes at the [facility] again if she becomes amenable. She plans to have bariatric surgery soon and I let her know she will likely be asked to have her blood glucose under control prior to undergoing surgery given the risk for poor wound healing and complications if she is not well controlled. 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 She had been receiving IV Toradol with good relief here but this was stopped after 5 days. She has taken [place] in the past, and this was resumed 05/07 with appropriate pain relief. She is also trying to stretch, ambulate and change positions in the bed to see if this helps. She was sent home with a short prescription for the norco with no refills and knows she will need to follow up with her PCP should she need more. (5) Oral Thrush Impression: Stable. notes this is new in the last 1-2 days and is somewhat painful. She was started on Nystatin swish and spit. - HPI History of Present Illness: from Dr. Matt's HPI 04/30: "This is a 51-year-old female with past medical history significant for GERD who presents today complaining of worsening shortness of breath. She states she took an at-home test for Covid on the which came back positive. She felt terrible over the next week and so she came to the emergency department on the . X-ray at that time showed bilateral pneumonia but she was not hypoxic and so she was sent home. She states over the past 3 to 4 days she has had progressive shortness of breath and so she came back today for evaluation. She states her dyspnea is only with activity and she feels fine at rest. She has had a cough with productive green/brown sputum. She also had chest pain that is located behind the sternum and is worse with inspiration. The pain is nonradiat ing. She reports no fevers at home but has felt chills, malaise and has had diarrhea. She has also had decreased appetite. She is not vaccinated against Covid. She reports no lower extremity edema." - CONSULTS | PROCEDURES Consultations: Diabetes Education - HOSPITAL COURSE Hospital Course: Pt admitted with increased shortness of breath after testing postive for COVID at home on the . She tested positive again in the ED on 04/25 and went home as she was found to have bilateral pneumonia but not hypoxia. Over the next 3-4 days she had increased shortness of breath, mostly with activity, as well as a productive cough with green/brown sputum and chest pain behind the sternum made worse with inspiration. She required oxygen supplementation of 4L NC until 05/03 when she required high flow nasal cannula to maintain her saturations 92-96%. On 05/04 she was able to transition back to nasal cannula and remained on 3L. Today an ambulatory desat study was performed by RT, who reported the following: O2 sats at rest, room air: 93% O2 sats ambulating on room air: 80% O2 sats ambulating on 2lpm: 82%, 3lpm 84%, and finally on 6lpm ambulating her sats were 91%. I am ordering home O2, room air at rest, and 6lpm with exertion to treat her Cvoid 19 pneumonia and resulting hypoxemia. She received treatment for her covid with Remdesivir and Decadron, as well as an additional 4 days of the Decadron given her continued hypoxia. She was sent home with a short steroid taper given the length of time she has been receiving them. She did not require antibiotics as she remained afebrile and never developed a leukocytosis. Also on admission she was found to have an A1C of 7.2%. She had labile blood sugars that were quite high and ultimately required 20units of Lantus daily with breakfast, 10 units of Novalog with meals, and high dose sliding scale insulin. Diabetic education was ordered but due to staffing issues she did not receive much. She does report multiple family members have DM2 and will be able to assist with the glucometer if needed. She has taken diabetic classes in the past due to having gestational diabetes and then being borderline diabetic and feels confident she will be able to manage this at home. She has been encouraged to return for more diabetic education with the classes at the [facility] but is not sure she will come back for these. Home insulin prescriptions were sent to her pharmacy for the glucometer and supplies, 10 units Novalog with meals, and 25units Lantus daily. She was instructed to closely monitor her blood sugars and to lower the dose with meals if her sugars are lower after stopping the steroids. She was also instructed to return to her PCP within 1-2 weeks for close follow up and diabetic management. She was started on [place] for back pain on 05/07. Prior to this she received IV Toradol x 5 days with good relief. She reports this pain is related to her fibromyalgia and she has had Midland in the past. She was given a prescription for 30 tablets and no refills, instructed to follow up with her PCP. On the day of discharge she was noted to have oral thrush and started on a nystatin swish and spit. She should follow up with her PCP. - ALLERGIES Allergies/Adverse Reactions: Allergies Allergy/AdvReac Type Severity Reaction Status Date / Time ondansetron HCl * Allergy Hives Verified 04/25/21 16:08 [From Zofran] Penicillins Allergy Hives Verified 04/25/21 16:08 wheat AdvReac Cramps Verified 04/25/21 16:08 - MEDICATIONS Home Medications: Ambulatory Orders Medication Instructions Recorded Confirmed Trazodone HCl 50 mg PO HS PRN 12/31/12 05/02/21 Omeprazole [PriLOSEC] 20 mg PO DAILY 01/12/14 05/02/21 Cetirizine [ZyrTEC] 10 mg PO DAILY PRN 07/18/16 05/02/21 Sucralfate [Carafate] 1 gm PO QID 05/02/21 05/02/21 Venlafaxine ER [Effexor ER] 37.5 mg PO DAILY 05/02/21 05/02/21 Blood Sugar Diagnostic [Glucometer 1 each MC TID #100 strip 05/08/21 Strips] Blood-Glucose Meter [Glucometer] 1 each MC DAILY #1 each 05/08/21 HYDROcod/ACETAM 5/325 [[place] 5/325] 1 - 2 tablet PO Q6H PRN #30 tablet 05/08/21 Insulin Glargine [Lantus Solostar] 25 unit SQ DAILY #3 syr 05/08/21 Insulin Regular, Human [Novolin R 10 unit SQ TIDWM #10 syr 05/08/21 Flexpen] Lancets 1 each MC QID #120 each 05/08/21 Pen Needle, Diabetic [Pen Needle] 1 each QID #120 ndl 05/08/21 methylPREDNISolone [Medrol Dose 1 each PO .PACKAGEINSTRUCTIONS 6 05/08/21 Pack] Days #1 each - PHYSICAL EXAM AT DISCHARGE General Appearance: positive: No acute distress, Alert Eyes Bilateral: positive: Normal inspection, PERRL ENT: positive: No signs of dehydration, Other (Appears to have thrush on her tongue) Respiratory: positive: Chest non-tender, No respiratory distress, Breath sounds nml Cardiovascular: positive: Regular rate & rhythm Peripheral Pulses: positive: 2+ Abdomen: positive: Non-tender, No organomegaly, Nml bowel sounds, No distention Skin: positive: Color nml Extremities: positive: Non-tender, Full ROM, Nml appearance, No pedal edema Neurologic/Psychiatric: positive: Oriented x3 - LABS Result Diagrams: 05/07/21 05:40 05/07/21 04:49 - DIAGNOSTIC IMAGING Diagnostic Imaging Results: Final report reviewed Diagnostic Imaging Results Comments: /2 CT angio Chest/Thorax: No CT evidence of pulmonary embolism. At least moderate, predominantly peripheral ground glass airspace opacities, most consistent with an atypical viral infectious process. 04/30 chest x-ray: bilateral pulmonary opacities most consistent with pneumonia 04/30 EKG: sinus rhythm - SEPSIS Current Stage of Sepsis: Ruled out - TIME SPENT Time Spent in Discharge (Minutes): 45
[2021-05-08 15:25] VITALS: BP 105/67
== END 2021-05-08 15:55 | disposition home or self-care (01) | DRG 177 ==
LOC: ED 18:40 → MS3 20:07
PROVIDERS: ADMIT Internal Medicine; ATTEND Registered Nurse
PROC: XW033E5 Introduction of Remdesivir Anti-infective into Peripheral Vein, Percutaneous Approach, New Technology Group 5 (ICD-10-PCS; principal; 2021-05-01)
DX: U07.1 COVID-19 (principal); J12.82 Pneumonia due to coronavirus disease 2019; J96.01 Acute respiratory failure with hypoxia; B37.0 Candidal stomatitis; E11.9 Type 2 diabetes mellitus without complications; M79.7 Fibromyalgia; K21.9 Gastro-esophageal reflux disease without esophagitis; Z71.3 Dietary counseling and surveillance; Z79.4 Long term (current) use of insulin; Z83.3 Family history of diabetes mellitus; Z88.0 Allergy status to penicillin
CPT/HCPCS: 36415; 71045; 71275; 80048; 80053; 83036; 83735; 84100; 84484; 85025; 85379; 93005; 94761; 99285; A9270; J1650; J1815; J8540; Q9967

== ENCOUNTER 2021-10-28 20:09 | Emergency (ER) | payer OTHER ==
[2021-10-28] MEDS ORDERED: DOXYCYCLINE 100 MG TABLET PO STA (21:36)
[2021-10-28] MEDS ORDERED: HYDROcod/ACETAM 5/325 MG TABLET PO STA (21:36)
--- NOTE | 2021-10-28 21:39 | ED Physician Documentation ---
History of Present Illness - Stated complaint Stated Complaint: RT TOE PAIN - Chief complaint Chief Complaint: Wound - Additonal information Additional information: 51-year-old female presents emergency department for an ingrowing right great nail that has been a problem for at least a few months but is gotten progressively worse over the last week. She has tried excising the nail which is only worsen the problem now she has purulent drainage increased toe pain and redness. 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, Miscarriage(s) : None HEENT: None Psych: None Musculoskeletal: Other Derm: None - Past Surgical History Past Surgical History: Yes General: Cholecystectomy Ortho: Arthroscopic surgery, Carpal Tunnel surgery, Other /SLIDE DEVELOPER: section, Hysterectomy HEENT: Tonsil/Adenoidectomy - Present Medications Home Medications: Ambulatory Orders Medication Instructions Recorded Confirmed Trazodone HCl 50 mg PO HS PRN 12/31/12 05/02/21 Omeprazole [PriLOSEC] 20 mg PO DAILY 01/12/14 05/02/21 Cetirizine [ZyrTEC] 10 mg PO DAILY PRN 07/18/16 05/02/21 Sucralfate [Carafate] 1 gm PO QID 05/02/21 05/02/21 Venlafaxine ER [Effexor ER] 37.5 mg PO DAILY 05/02/21 05/02/21 Blood Sugar Diagnostic [Glucometer 1 each TID #100 strip 05/08/21 Strips] Blood-Glucose Meter [Glucometer] 1 each MC DAILY #1 each 05/08/21 HYDROcod/ACETAM 5/325 [[place] 5/325] 1 - 2 tablet PO Q6H PRN #30 tablet 05/08/21 Insulin Glargine [Lantus Solostar] 25 unit SQ DAILY #3 syr 05/08/21 Insulin Regular, Human [Novolin R 10 unit SQ TIDWM #10 syr 05/08/21 Flexpen] Lancets 1 each MC QID #120 each 05/08/21 Pen Needle, Diabetic [Pen Needle] 1 each MC QID #120 ndl 05/08/21 methylPREDNISolone [Medrol Dose 1 each PO .PACKAGEINSTRUCTIONS 6 05/08/21 Pack] Days #1 each Doxycycline Hyclate 100 mg PO BID #14 cap 10/28/21 HYDROcod/ACETAM 5/325 [[place] 5/325] 1 tablet PO DAILY #3 tablet 10/28/21 - Allergies Allergies/Adverse Reactions: Allergies Allergy/AdvReac Type Severity Reaction Status Date / Time ondansetron HCl * Allergy Hives Verified 10/28/21 20:33 [From Zofran] Penicillins Allergy Hives Verified 10/28/21 20:33 wheat AdvReac Cramps Verified 10/28/21 20:33 - Social History Does the pt smoke?: No Smoking Status: Never smoker Does the pt drink ETOH?: No Does the pt have substance abuse?: No - Immunizations Immunizations are current?: Yes - POLST Patient has POLST: No PD ED PE EXPANDED - General General: Alert, No acute distress - Extremities Extremities: Right toe(s) (Right great toe erythematous and indurated. The lateral portion of the nail is ingrown with moderate amount of mucopurulent drainage as well as some old scabbing. Quite tender to touch. 2+ DP pulse) Results - Vitals Vitals: Vital Signs - 24 hr 10/28/21 20:30 Temperature 36.5 C Heart Rate 86 Respiratory 16 Rate Blood Pressure 132/73 H O2 Saturation 99 Oxygen O2 Source Nasal cannula PD MEDICAL DECISION MAKING - ED course Complexity details: reviewed old records, reviewed results, considered differential, d/w patient ED course: 51-year-old female presents emergency department for an ingrown and painful right great nail. She has been trying to remove the ingrowing nail and has now subsequently developed mucopurulent drainage, increased pain toe swelling and redness. We deferred nail excision today in the emergency department. She is advised continue warm salt water soaks. Will be started on doxycycline. She reports an intolerance to NSAID medication. 3 [place] tablets have been sent to the [facility]. I advised her to have close follow-up at urgent care later this week to determine if nail excision was appropriate at that time once the infection was better controlled. Departure - Departure Disposition: 01 Home, Self Care Clinical Impression: Ingrown right greater toenail, Cellulitis of toe of right foot Condition: Stable Record reviewed to determine appropriate education?: Yes Prescriptions: Doxycycline Hyclate 100 mg PO BID #14 cap HYDROcod/ACETAM 5/325 [[place] 5/325] 1 tablet PO DAILY #3 tablet Comments: Rula rodriguez were seen today in the emergency department because you have an ingrown right toenail. It is quite infected. I recommend you continue the warm salt water soaks. I am sending a prescription for doxycycline to the [facility] in [place]. Please fill and begin taking as directed. I would recommend that you follow-up at an urgent care provider this week after you have been on the antibiotics to determine if they would like to do a nail excision. You may also benefit from following up with a drop clipper. I sent a limited prescription for [place] simply 3 tablets to the [facility] in [place]. As the infection improves I would expect pain to improve. I am prescribing a short course of narcotic pain medication for you. These are potentially dangerous and addictive medications that should be used carefully. These medications may constipate you. Take an fmhi-eqr-wjkfetn stool softener (d ocusate) twice daily with plenty of water while taking these medications. If you go 24 hours without a bowel movement, take [id number]-[id number] miralax, per package instructions. Do not drink or drive while taking these medications. If you received narcotic or sedating medications while in the emergency department, do not drive for 24 hours. Store this medication in a safe, secure place and out of reach of children. It is a violation of federal law to give or sell this medication to another person or to use in a manner other than prescribed. The ED will not refill narcotic prescriptions, including prescriptions lost or stolen. To dispose of unwanted medications: 1. [facility] at [address] in [place] has a medication drop box. They accept prescription medications (in pill form) Sunday through Sunday 9:00 a.m. to 5:00 p.m. 2. [facility] accepts prescription medications (in pill form only) for disposal year round. Call for more information. 3. Contact the [facility] for the next [facility] sponsored prescription drug collection event. , [phone], or x [phone]; Note that many narcotic pain relievers also contain Tylenol/acetaminophen. Please ensure that your total dose of acetaminophen from all sources does not exceed 3 g (3000 mg) per day.
[2021-10-28 21:57] VITALS: BP 130/70
== END 2021-10-28 21:55 | disposition home or self-care (01) ==
LOC: ED 20:09
DX: L60.0 Ingrowing nail (principal); L03.031 Cellulitis of right toe
CPT/HCPCS: 99282; A9270

== ENCOUNTER 2022-09-21 08:00 | Outpatient (CLI) | payer OTHER ==
--- NOTE | 2022-09-21 11:18 | XRAY Report ---
PROCEDURE: Hand 3 View LT INDICATIONS: LEFT HAND PAIN TECHNIQUE: 3 views of the hand(s) acquired. COMPARISON: None. FINDINGS: Bones: No acute or subacute fractures. No suspicious bony lesions. Normal alignment. Mild backgroun d polyarticular degenerative changes of the left hand. No suspicious juxta-articular osseous erosions . No periosteal reaction. Chronic appearing soft tissue calcification noted over the volar aspect of the left hand adjacent to the scaphoid seen only on the lateral view. Soft tissues: No suspicious soft tissue calcifications or masses. IMPRESSION: Left hand without acute or subacute osseous abnormalities. Normal alignment. Mild background polyarti cular degenerative changes. Reviewed by: Joaquin Cuevas MD on 09/21/2022 11:17 AM PDT Approved by: Joaquin Cuevas MD on 09/21/2022 11:17 AM PDT Station ID: [id number]
== END 2022-09-21 23:59 | disposition home or self-care (01) ==
LOC: DI.WOS 08:00
PROVIDERS: ATTEND Physician Assistant Surgical
DX: M19.042 Primary osteoarthritis, left hand (principal)

== ENCOUNTER 2022-09-30 07:32 | Outpatient (CLI) | payer OTHER ==
--- NOTE | 2022-10-02 11:08 | MRI Report ---
PROCEDURE: HAND WO - LT INDICATIONS: LEFT THUMB PAIN TECHNIQUE: Noncontrast oblique coronal T1 spin echo and T2 fast spin echo with fat saturation, axial and sagitta l T2 fast spin echo with fat saturation, through the thumb. COMPARISON: Left hand radiograph dated 09/21/2022. FINDINGS: Image quality: Excellent. Bones: The bones are normally aligned, without marrow contusions or fractures. Mild osteoarthritic changes are noted throughout left thumb and left hand more notably at first CMC joint and first MCP j oint with joint space narrowing and subchondral sclerosis. No intra-osseous lesions. First carpometacarpal joint: On sagittal images, the dorsal radial ligament and posterior oblique li gament appear mildly thickened. The intermetacarpal ligament between the 1st and 2nd metacarpal base s also appears intact. On the volar aspect, the deep and superficial layers of the anterior oblique ligament appear mildly thickened. First metacarpophalangeal joint: The proper and accessory components of the radial collateral ligame nt appears thickened with intrasubstance T2 hyperintense signal. The overlying fibers of the abductor pollicis brevis tendon are grossly intact. The proper and accessory components of the ulnar collate ral ligaments also appears thickened with intrasubstance T2 hyperintense signal. The overlying fibers of the adductor pollicis muscle are intact. The aponeurosis of the adductor pollicis muscle also ap pears normal. The volar plate appears intact on sagittal images, situated between the radial and uln ar sesamoids. Thenar muscles: The superficial abductor pollicis longus muscle appears normal, with tendon insertin g on the radial base of the first proximal phalanx. The opponens pollicis muscle also appears normal , inserting on the first metacarpal shaft. The flexor pollicis brevis muscle appears normal, with te ndon inserting on the radial sesamoid and first proximal phalanx. The oblique and transverse heads o f the adductor pollicis muscle appear normal, inserting on the ulnar sesamoid and proximal phalanx as part of the adductor aponeurosis. Flexor pollicis longus tendon: Tendon fibers appear intact, coursing between the thenar eminence mus cles and the adductor pollicis muscle, and inserting on the volar base of the distal phalanx. The fi rst annular radha at the level of the first MCP joint appears intact, intimate with the sesamoids. The second annular radha at the level of interphalangeal joint also appears intact. The oblique yoselin ular radha between the 1st and 2nd annular pulleys appears intact, with ulnar proximal attachment in timate with the adductor aponeurosis. The variable annular radha also appears intact between the fi rst annular and oblique annular pulleys. Extensor tendons: The extensor pollicis brevis tendon appears thickened with mild adjacent soft tiss ue edema. The extensor pollicis longus tendon appears also appears thickened at the level of first CM C joint with adjacent soft tissue edema. The sagittal band at the level of the first MCP joint appear s intact. The abductor pollicis longus tendon slips appear intact at the radial aspect of the proxim al phalanx, proximal to the abductor pollicis brevis tendon insertion. Miscellaneous: No ganglion cysts. IMPRESSION: 1. Mild osteoarthritic changes throughout left hand and left thumb more notably at first CMC joint an d first MCP joint. 2. Low-grade sprain involving volar and dorsal ligaments of first CMC joint. 3. Low to moderate grade sprain/intrasubstance partial thickness tear involving radial and ulnar martha ateral ligaments of first MCP joint without full-thickness rupture. 4. Tendinosis involving extensor tendons of first digit at the level of first CMC joint. Reviewed by: Oscar Narvaez MD on 10/02/2022 11:07 AM PDT Approved by: Oscar Narvaez MD on 10/02/2022 11:07 AM PDT Station ID: [id number]
== END 2022-09-30 07:33 | disposition home or self-care (01) ==
LOC: DI 07:32
PROVIDERS: ATTEND Physician Assistant Surgical
DX: M18.12 Unilateral primary osteoarthritis of first carpometacarpal joint, left hand (principal); M19.042 Primary osteoarthritis, left hand; S63.682A Other sprain of left thumb, initial encounter; S63.8X2A Sprain of other part of left wrist and hand, initial encounter

== ENCOUNTER 2022-11-04 08:00 | Outpatient (CLI) | payer OTHER | END 2022-11-04 23:59 | disposition home or self-care (01) | LOC: LAB.N 08:00 | PROVIDERS: ATTEND Nurse Practitioner | DX: R10.9 Unspecified abdominal pain (principal) | CPT/HCPCS: 87086 ==

== ENCOUNTER 2023-08-15 07:15 | Outpatient (CLI) | payer OTHER ==
[2023-08-16 00:41] LABS: BACTERIAL VAGINOSIS DNA NEGATIVE (NEGATIVE); CANDIDA GLABRATA DNA NEGATIVE (NEGATIVE); CANDIDA GROUP DNA NEGATIVE (NEGATIVE); CANDIDA KRUSEI DNA NEGATIVE (NEGATIVE); TRICHOMONAS VAGINALIS DNA NEGATIVE (NEGATIVE)
== END 2023-08-15 07:30 | disposition home or self-care (01) ==
LOC: LAB.N 07:15
PROVIDERS: ATTEND Nurse Practitioner
DX: R30.0 Dysuria (principal)
CPT/HCPCS: 81514; 87086